=== PATIENT | female | born 1960 | race Caucasian/White ===

== ENCOUNTER → 2017-07-06 13:54 | Outpatient (CLI) | payer OTHER, SELFPAY ==
[2017-07-06 14:03] VITALS: BP 115/68; PULSE 69; RESP 16; TEMP 36.6; O2SAT 98; BMI 19.5
[2017-07-06] MEDS: Zoledronic Acid 5 MG 100 ML 300 MG IV (14:16)
== END ==
PROVIDERS: Family Provider Family Medicine; PCP Family Medicine; Visit Provider Family Medicine
DX: M81.0 Age-related osteoporosis without current pathological fracture (principal); Z78.0 Asymptomatic menopausal state
CPT/HCPCS: 96365; A4216; J3489

== ENCOUNTER → 2017-10-24 15:09 | Outpatient (CLI) | payer OTHER, SELFPAY ==
[2017-10-24 17:48] LABS: Absolute Lymphocyte Count 2.55 X10^3/ul (0.83-4.51); Basophil# 0.05 X10^3/uL; Basophil% 0.7 % (0-1); Eosinophil# 0.22 X10^3/uL; Hematocrit 40.2 % (37-47); Hemoglobin 12.6 g/dl (12.0-15.0); Lymphocyte # 2.55 X10^3/ul (4.0); Lymphocyte % 35.2 % (19-41); Mean Corp Hgb Conc 31.3 g/gl (32-36); Mean Corpuscular Hgb 28.3 pg (27.0-32.0); Mean Corpuscular Volume 90.1 fL (81-99); Mean Platelet Vol. 11.4 fl (6.2-12.0); Monocyte# 0.43 X10^3/uL; Monocyte% 5.9 % (0-10); Neutrophil # 3.99 X10^3/uL (2.7-7.7); Neutrophil % 55.1 % (47-70); Platelet Count 218 K/mm3 (150-450); RBC Distribution Width CV 13.7 % (11.6-14.6); RBC Distribution Width SD 45.6 fl (35.1-43.9); Red Blood Count 4.46 M/mm3 (4.2-5.4); White Blood Count 7.3 K/mm3 (4.4-11.0)
[2017-10-24 17:52] LABS: POSITIVE COUNT NO; POSITIVE DIFFERENTIAL NO; POSITIVE MORPHOLOGY NO
[2017-10-24 17:54] LABS: Anion Gap 9 (5-15); BUN 23 mg/dL (7-18); BUN/Creat Ratio 23.9 RATIO (10-20); Calcium,Total 8.5 mg/dL (8.5-10.1); Chloride 109 mmol/L (98-107); Cholesterol 163 mg/dL (200); Creatinine, Serum 0.96 mg/dL (0.55-1.02); EST Glomerular Filtration Rate 63 mL/min (>60); Est Glom Filt Rate - Afr Amer 76 mL/min (>60); Glucose 109 mg/dL (74-106); High Density Lipoprotein 68 mg/dL; Sodium Level 143 mmol/L (136-145); Thyroid Stim Hormone (TSH) 1.03 uIU/mL (0.358-3.74); Triglycerides 145 mg/dL; Very Low Density Lipoprotein 29 mg/dL (5-40)
== END ==
PROVIDERS: Family Provider Family Medicine; PCP Family Medicine; Visit Provider Family Medicine
DX: Z00.00 Encounter for general adult medical examination without abnormal findings (principal); J44.9 Chronic obstructive pulmonary disease, unspecified
CPT/HCPCS: 36415; 80048; 80061; 84443; 85025

== ENCOUNTER → 2017-12-03 12:39 | Outpatient (CLI) | payer OTHER, SELFPAY ==
--- NOTE | 2017-12-03 16:34 | PFTCOMP ---
COMPLETE PULMONARY FUNCTION TEST INTERPRETATION Brief HPI: Patient is a 56 year old female, currently under the care of Dr. Thomas, who presents to [facility] for complete pulmonary function tests secondary to diagnosis of COPD. Respiratory therapist reports good effort and reproducible results. Interpretation: Forced expiration spirometry shows a moderate large airways obstructive ventilatory defect with an FEV1 of 66% predicted. There is no significant bronchodilator response by ATS criteria. Spirograms are of good quality and plateau slowly, indicating slowly emptying areas of the lungs. The respiratory flow volume loop shows decreased expiratory flow rates at all lung volumes consistent with airway obstruction. Lung volumes by body plethysmography show an elevated total lung capacity at 5.54 L, 123% predicted. All other lung volumes are increased symmetrically. Diffusion capacity by carbon monoxide is at the lower limit of normal at 66% predicted. The airway resistance is elevated. Compared to previous pulmonary function tests from 11/26/2006, there has been a significant reduction in FEV1 and DLCO by 17% and 19% respectively. Impression: Irreversible moderate large airways obstructive ventilatory defect with a symmetric reduction diffusing capacity consistent with patient's diagnosis of COPD. There has been progression since 2006.
--- NOTE | 2017-12-03 16:38 | PFTCOMP_ITS ---
COMPLETE PULMONARY FUNCTION TEST INTERPRETATION Brief HPI: Patient is a 56 year old female, currently under the care of Dr. Thomas , who presents to [facility] for complete pulmonary function tests secondary to diagnosis of COPD. Respiratory therapist reports good effort and reproducible results. Interpretation: Forced expiration spirometry shows a moderate large airways obstructive ventilatory defect with an FEV1 of 66% predicted. There is no significant bronchodilator response by ATS criteria. Spirograms are of good quality and plateau slowly, indicating slowly emptying areas of the lungs. The respiratory flow volume loop shows decreased expiratory flow rates at all lung volumes consistent with airway obstruction. Lung volumes by body plethysmography show an elevated total lung capacity at 5.54 L, 123% predicted. All other lung volumes are increased symmetrically. Diffusion capacity by carbon monoxide is at the lower limit of normal at 66% predicted. The airway resistance is elevated. Compared to previous pulmonary function tests from 11/26/2006, there has been a significant reduction in FEV1 and DLCO by 17% and 19% respectively. Impression: Irreversible moderate large airways obstructive ventilatory defect with a symmetric reduction diffusing capacity consistent with patient's diagnosis of COPD. There has been progression since 2006.
== END ==
PROVIDERS: Family Provider Family Medicine; PCP Family Medicine; Visit Provider Family Medicine
DX: J44.9 Chronic obstructive pulmonary disease, unspecified (principal)
CPT/HCPCS: 94060; 94726; 94729

== ENCOUNTER → 2018-09-13 08:07 | Outpatient (CLI) | payer OTHER, SELFPAY ==
[2018-09-13] MEDS: Zoledronic Acid 5 MG 100 ML 300 MG IV (08:56)
[2018-09-13 08:59] VITALS: BP 117/65; PULSE 55; RESP 16; TEMP 36.4; O2SAT 96; BMI 20.1
== END ==
PROVIDERS: Family Provider Family Medicine; PCP Family Medicine; Referring Provider Family Medicine; Visit Provider Family Medicine
DX: M81.0 Age-related osteoporosis without current pathological fracture (principal)
CPT/HCPCS: 96365; J7050; A4216; J3489

== ENCOUNTER → 2018-11-04 | Outpatient (CLI) | payer OTHER, SELFPAY ==
[2018-09-13 08:59] VITALS: BMI 20.1
[2018-11-04 17:41] LABS: ALB/GLOB Ratio 1.1 RATIO (0.9-2.4); AST(SGOT) 17 U/L (15-37); Alanine Aminotransfer ALT/SGPT 21 U/L (13-56); Albumin, Serum 3.6 g/dL (3.2-5.0); Alkaline Phosphatase 54 U/L (45-117); Anion Gap 4 (5-15); BUN 22 mg/dL (7-18); BUN/Creat Ratio 23.8 RATIO (10-20); Calcium,Total 8.5 mg/dL (8.5-10.1); Chloride 110 mmol/L (98-107); Creatinine, Serum 0.92 mg/dL (0.55-1.02); EST Glomerular Filtration Rate 66 mL/min (>60); Est Glom Filt Rate - Afr Amer 80 mL/min (>60); Globulin 3.2 g/dL (2.2-4.2); Glucose 90 mg/dL (74-106); Potassium 4.2 mmol/L (3.5-5.1); Protein, Total 6.8 g/dL (6.4-8.2); Sodium Level 143 mmol/L (136-145)
[2018-11-04 18:27] LABS: Vitamin D,25 Hydroxy 25.2 ng/mL (29.95-100.01)
== END | disposition home or self-care (01) ==
LOC: MFPLAB 16:28
PROVIDERS: Family Provider Family Medicine; PCP Family Medicine; Visit Provider Nurse Practitioner Family
DX: E55.9 Vitamin D deficiency, unspecified (principal); B35.1 Tinea unguium
CPT/HCPCS: 36415; 80053; 82306

== ENCOUNTER → 2019-10-27 | Outpatient (CLI) | payer OTHER, SELFPAY ==
[2018-09-13 08:59] VITALS: BMI 20.1
[2019-10-27 08:49] VITALS: BP 130/60; PULSE 53; RESP 18; TEMP 35.8; O2SAT 100; BMI 20.1
[2019-10-27] MEDS: Zoledronic Acid 5 MG 100 ML 300 MG IV (09:07)
[2019-10-27 09:27] VITALS: BP 121/65; PULSE 55; RESP 16
== END | disposition home or self-care (01) ==
LOC: MEDOUTP 08:46
PROVIDERS: PCP Family Medicine; Referring Provider Family Medicine; Visit Provider Family Medicine
DX: M81.0 Age-related osteoporosis without current pathological fracture (principal)
CPT/HCPCS: 96365; A4216; J3489

== ENCOUNTER 2020-02-27 07:33 | Day surgery (SDC) | payer OTHER, SELFPAY ==
[2019-10-27 08:49] VITALS: BMI 20.1
--- NOTE | 2020-02-12 09:16 | EKG12_ITS ---
Test Reason : PRE OP Blood Pressure : / mmHG Vent. Rate : 049 BPM Atrial Rate : 049 BPM P-R Int : 110 ms QRS Dur : 064 ms QT Int : 430 ms P-R-T Axes : 078 052 074 degrees QTc Int : 388 ms Sinus bradycardia with short MO Otherwise normal ECG Confirmed by RISSA RAMESH, CHRIS ([id number]), newspaper photo editor MAY CAMPBELL ([id number]) on 02/13/2020 1:20:48 PM Referred By: Jonh Cramer Confirmed By:CHRIS KWOK MD
[2020-02-27] VITALS (7 sets, daily range): BP systolic 123–136; BP diastolic 60–73; PULSE 51–67; RESP 14–20; TEMP 35.7–36.4; O2SAT 95–100; BMI 20.7
[2020-02-27 08:13] LABS: Hemoglobin 13.6 g/dL (12.0-15.0); Mean Corp Hgb Conc 32.4 g/dL (32-36); Mean Corpuscular Hgb 29.2 pg (27.0-32.0); Mean Corpuscular Volume 90.3 fL (81-99); Platelet Count 232 K/mm3 (150-450); RBC Distribution Width SD 42.8 fl (35.1-43.9); Red Blood Count 4.65 M/mm3 (4.2-5.4); White Blood Count 6.9 K/mm3 (4.4-11.0)
[2020-02-27] MEDS: Lactated Ringers 1,000 ML 100 ML IV (08:19)
[2020-02-27] MEDS: Lidocaine 1%/Epi 1:200 (30ml) 30 ML AMPUL (09:37)
[2020-02-27] MEDS: Bacitracin 500 UNITS/GM PACKET (09:50)
[2020-02-27] MEDS: Lidocaine 2% /Epi 1:100 (50ml) 50 ML Vial (09:53)
--- NOTE | 2020-02-27 09:56 | OP.PCM_ITS ---
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 This is resulted in significant hypertrophy of the tragal cartilage and obstruction of the external auditory canal. The procedure was offered for alleviation of this excess tissue and hoahaoism of her external auditory canal patency and she was eager to proceed. The risks of coronavirus exposure in this time period was also discussed and she was agreeable to accept this risk in exchange for relief of her chronic condition. The risks, alternatives, potential complications, and benefits were discussed at length and any questions answered to the patient and/or caregiver's satisfaction. Witnessed informed consent was obtained in the office, and the patient and/or caregiver was agreeable to proceed. Procedure went as follows: The patient was identified in the preoperative holding and the left ear site marked in accordance with the patient's exam, office chart, and history. She was then brought to the operating room she was placed under general anesthesia and intubated. When appropriate anesthesia obtained, the left ear was prepped and draped in usual sterile fashion. The tragal incision site was then injected with 2% lidocaine with 1:100,000 epinephrine for a total of 1 cc. After allowing for vasoconstriction a 15 blade scalpel was then used to make a 1 cm incision along the tragal cartilage. Thick scarring of the underlying tissue was immediately encountered. The overlying skin was then undermined and a full-thickness graft fashion with the excess scar excised down to the tragal cartilage. The excess skin was then removed and an ellipse around the incision site which removed the redundant folding and fullness that had occluded the external auditory canal. This was then sutured with 5-0 Monocryl interrupted sutures for closure of the skin wound. The patient was then returned to anesthesia where she revived and extubated without complication having tolerated the procedure well. Type of Anesthesia:: General Anesthesiologist: Ruben Sharpe Special Medications: none Specimen's removed: none Drains: none Estimated Blood Loss (mL): 0 mL Fluids Replaced: 800 mL Grafts/Implants Used: none - Complications none - Admit VTE Documentation VTE Present on Admission: No VTE Mechan Device Prophylaxis: SCD's VTE Pharm Prophylaxis ordered?: No
--- NOTE | 2020-02-27 10:02 | PCM.DC ---
- Discharge Diagnoses Current Active Problems: Current Active and Chronic Problems Stenosis of left external auditory canal (Chronic) You will use the following diet at home:: No restrictions Discharge Activity: Return to Normal Activity Call your doctor if your incision/area has: Increased Pain/ Swelling, Foul Smelling Discharge Cleanse incision/area with: Do not get Incision Wet Allergies/Adverse Reactions: Allergies No Known Allergies Allergy (Verified 02/04/20 10:48) Medications to take at Discharge Albuterol IH (ProAir) [Proair Hfa (SP)Vent Pts] 1 puff INHALATION Q6H PRN PRN 06/30/16 Fluticasone/Salmeterol [Advair 100-50 Diskus] 1 puff INHALATION DAILY 06/30/16 Pantoprazole Sodium [Protonix] 40 mg PO DAILY 06/30/16 Ospemifene [Osphena] 60 mg PO DAILY 07/06/17 Umeclidinium [place] Inhaler [Incruse Ellipta Inhaler] 1 puff IH DAILY 10/27/19 Biotin 5,000 mcg PO DAILY 02/04/20 Calcium (Elemental) [Os-David 500] 1,000 mg PO BID 02/04/20 Cholecalciferol (Vitamin D3) [Vitamin D3] 25 mcg PO DAILY 02/04/20 Zoledronic Acid 5 MG [Reclast 5 MG/100 Ml Solution] 5 mg IV .YEARLY 02/04/20 Primary Care Physician: Jonh Thomas MD [Primary Care Provider] - Test Results: Test results from this visit will be discussed in further detail at your follow-up appointment, if applicable. Please Follow Up With: Jonh Cramer MD When: 2 weeks
== END 2020-02-27 11:30 | disposition home or self-care (01) ==
LOC: SDC 07:34 → AC 07:35
PROVIDERS: Anesthesiology; PCP Family Medicine; Referring Provider Otolaryngology; Visit Provider Otolaryngology
PROC: (CPT 69310; principal; 2020-02-27 08:55)
DX: H61.312 Acquired stenosis of left external ear canal secondary to trauma (principal); J44.9 Chronic obstructive pulmonary disease, unspecified; K21.9 Gastro-esophageal reflux disease without esophagitis; Z20.828 Contact with and (suspected) exposure to other viral communicable diseases; Z79.51 Long term (current) use of inhaled steroids; Z87.891 Personal history of nicotine dependence; Z79.899 Other long term (current) drug therapy
CPT/HCPCS: 00120; 69310; 36415; 85027; 87426; 93005; C9803; J7120; J2405

== ENCOUNTER → 2020-06-08 16:59 | Outpatient (CLI) | payer OTHER, SELFPAY ==
[2020-02-27 08:02] VITALS: BMI 20.7
[2020-06-08 17:33] LABS: Absolute Neutrophil Count 4.6 X10^3/uL (2.0-7.7); Basophil# 0.11 X10^3/uL; Basophil% 1.3 % (0-1); Eosinophil# 0.24 X10^3/uL; Eosinophils% 2.8 % (0-5); Hematocrit 42.2 % (37-47); Hemoglobin 13.3 g/dL (12.0-15.0); Lymphocyte % 33.8 % (19-41); Mean Corp Hgb Conc 31.5 g/dL (32-36); Mean Corpuscular Hgb 28.5 pg (27.0-32.0); Mean Corpuscular Volume 90.6 fL (81-99); Mean Platelet Vol. 10.8 fl (6.2-12.0); Monocyte# 0.64 X10^3/uL; Monocyte% 7.5 % (0-10); NRBC Flagged by Analyzer 0 % (0-5); Neutrophil # 4.64 X10^3/uL (2.7-7.7); Neutrophil % 54.1 % (47-70); Platelet Count 253 K/mm3 (150-450); RBC Distribution Width CV 13.4 % (11.6-14.6); RBC Distribution Width SD 44.9 fl (35.1-43.9); Red Blood Count 4.66 M/mm3 (4.2-5.4); White Blood Count 8.6 K/mm3 (4.4-11.0)
[2020-06-08 17:39] LABS: Prothrombin Time (Protime)PT. 12.4 SECONDS (11.7-14.9)
[2020-06-08 18:14] LABS: ALB/GLOB Ratio 1.1 RATIO (0.9-2.4); AST(SGOT) 17 U/L (15-37); Alanine Aminotransfer ALT/SGPT 18 U/L (13-56); Albumin, Serum 3.8 g/dL (3.2-5.0); Alkaline Phosphatase 62 U/L (45-117); Anion Gap 2 (5-15); BUN 25 mg/dL (7-18); BUN/Creat Ratio 25.4 RATIO (10-20); Calcium,Total 8.9 mg/dL (8.5-10.1); Chloride 108 mmol/L (98-107); Creatinine, Serum 0.98 mg/dL (0.55-1.02); EST Glomerular Filtration Rate 61 mL/min (>60); Est Glom Filt Rate - Afr Amer 74 mL/min (>60); Globulin 3.4 g/dL (2.2-4.2); Glucose 88 mg/dL (74-106); Potassium 3.9 mmol/L (3.5-5.1); Protein, Total 7.2 g/dL (6.4-8.2); Sodium Level 139 mmol/L (136-145)
== END ==
PROVIDERS: PCP Family Medicine; Referring Provider Family Medicine; Visit Provider Family Medicine
DX: S00.1 Contusion of eyelid and periocular area (principal); R51.9 Headache, unspecified
CPT/HCPCS: 36415; 80053; 85025; 85610; 85730

== ENCOUNTER → 2020-06-09 14:17 | Outpatient (CLI) | payer OTHER, SELFPAY ==
[2020-02-27 08:02] VITALS: BMI 20.7
--- NOTE | 2020-06-09 14:21 | CT_ITS ---
STUDY: CT BRAIN WITHOUT CONTRAST REASON FOR EXAM: Female, 59 years old. New onset headache with bilateral spontaneous orbital ecchymosis RADIATION DOSAGE (If Supplied By Facility): CTDIvol = ( 38.43 ) mGy, DLP = ( 640.64 ) mGycm TECHNIQUE: Transaxial CT imaging of the brain was performed without administration of intravenous contrast material. Individualized dose optimization techniques were used for this CT. COMPARISON: No relevant priors. FINDINGS: Normal soft tissue structures. Normal calvarium. Normal size ventricles and extra-axial spaces for the patient''s age. Normal white matter tracts of the cerebral hemispheres. Normal basal ganglia and thalami. Normal brainstem. Normal cerebellum. There is no intracranial hemorrhage. There are no findings of an acute ischemic infarction. Mucosal thickening of the maxillary sinuses bilaterally. Partial opacification of the ethmoid sinuses bilaterally. CT/Brain/Head without Contrast IMPRESSION: Sinusitis. Electronically Signed: Gray Allen MD at 15:05 EDT , Service support ,
== END ==
PROVIDERS: PCP Family Medicine; Referring Provider Family Medicine; Visit Provider Family Medicine
DX: R23.3 Spontaneous ecchymoses (principal); R51.9 Headache, unspecified
CPT/HCPCS: 70450

== ENCOUNTER 2020-07-08 11:11 | Inpatient (IN) | payer OTHER, SELFPAY ==
[2020-02-27 08:02] VITALS: BMI 20.7
[2020-07-08] VITALS (12 sets, daily range): BP systolic 111–157; BP diastolic 53–91; PULSE 51–69; RESP 15–20; TEMP 36.3–37.1; O2SAT 95–99; BMI 21.0; BMI 20.1
--- NOTE | 2020-07-08 11:21 | EKG12_ITS ---
Test Reason : DIZZINESS Blood Pressure : / mmHG Vent. Rate : 053 BPM Atrial Rate : 053 BPM P-R Int : 100 ms QRS Dur : 072 ms QT Int : 396 ms P-R-T Axes : 056 065 062 degrees QTc Int : 371 ms Sinus bradycardia with short MT Nonspecific T wave abnormality Abnormal ECG Confirmed by ESTHELA RAMESH, TERRI ([id number]), editor producer NELLY SHANNON ([id number]) on 07/12/2020 10:11:27 AM Referred By: JOSHUA Confirmed By:TERRI PROCTOR MD
[2020-07-08 11:29] LABS: Absolute Lymphocyte Count 2.13 X10^3/uL (0.83-4.51); Absolute Neutrophil Count 4.3 X10^3/uL (2.0-7.7); Basophil# 0.06 X10^3/uL; Basophil% 0.8 % (0-1); Eosinophil# 0.11 X10^3/uL; Eosinophils% 1.5 % (0-5); Hematocrit 42.6 % (37-47); Hemoglobin 13.6 g/dL (12.0-15.0); Lymphocyte # 2.13 X10^3/ul (0.83-4.51); Lymphocyte % 29.8 % (19-41); Mean Corp Hgb Conc 31.9 g/dL (32-36); Mean Corpuscular Hgb 28.4 pg (27.0-32.0); Mean Corpuscular Volume 88.9 fL (81-99); Mean Platelet Vol. 10.3 fl (6.2-12.0); Monocyte# 0.49 X10^3/uL; Monocyte% 6.9 % (0-10); NRBC Flagged by Analyzer 0 % (0-5); Neutrophil # 4.33 X10^3/uL (2.7-7.7); Neutrophil % 60.6 % (47-70); Platelet Count 246 K/mm3 (150-450); RBC Distribution Width CV 13.1 % (11.6-14.6); RBC Distribution Width SD 42.8 fl (35.1-43.9); Red Blood Count 4.79 M/mm3 (4.2-5.4); White Blood Count 7.2 K/mm3 (4.4-11.0)
[2020-07-08 11:43] LABS: Anion Gap 4 (5-15); BUN 31 mg/dL (7-18); Calcium,Total 9.4 mg/dL (8.5-10.1); Chloride 105 mmol/L (98-107); Creatinine, Serum 1.24 mg/dL (0.55-1.02); EST Glomerular Filtration Rate 47 mL/min (>60); Est Glom Filt Rate - Afr Amer 56 mL/min (>60); Estimated Creatinine Clearance 37.68 ml/min; Glucose 113 mg/dL (74-106); Potassium 3.6 mmol/L (3.5-5.1); Sodium Level 137 mmol/L (136-145)
--- NOTE | 2020-07-08 12:49 | EDS_ITS ---
HPI History of Present Illness Chief Complaint: General Illness Detail of Chief Complaint: Patient presents with near syncope, diaphoresis, and shortness of breath th Informant: patient Onset/Context/Timing Onset: Yesterday Narrative Narrative: Patient presents to the emergency department with complaint of a spell that has occurred twice now. Patient states she had a first episode at the end of May when she was doing some yard work and bent over and felt dizzy and presyncopal. Patient states that eventually her symptoms resolved and then yesterday while she was mowing the lawn she once again developed dizziness and a sensation of presyncope. Patient became very diaphoretic and that she vomited 4 times. Patient went inside and rested and symptoms past and currently has no co mplaints. Patient called her primary care physician who advised her to come to the ER to be evaluated. Prior similar symptoms: Yes PFSH PFSH Medical History (Updated 07/08/20 @ 14:[address] Rubén Cooley, DO) COPD (chronic obstructive pulmonary disease) Former smoker History of ganglion cyst Home Medications albuterol sulfate [ProAir HFA] 1 puff INHALATION Q6H PRN PRN 06/30/16 [History Last Taken 02/27/20 06:00 1 PUFF] fluticasone propion-salmeterol [Advair Diskus] 1 puff INHALATION DAILY 06/30/16 [History Last Taken 02/27/20 06:00 1 PUFF] pantoprazole 40 mg PO DAILY 06/30/16 [History Last Taken 02/27/20 06:00 40 MG] Osphena 60 mg PO DAILY 07/06/17 [History Last Taken Unknown] biotin 5,000 mcg PO DAILY 02/04/20 [History Last Taken Unknown] calcium carbonate 1,000 mg PO BID 02/04/20 [History Last Taken Unknown] cholecalciferol (vitamin D3) 25 mcg PO DAILY 02/04/20 [History Last Taken Unknown] zoledronic iyfb-cbvjsiqw-bzzgu 5 mg IV .YEARLY 02/04/20 [History Last Taken Unknown] umeclidinium [Incruse Ellipta] 1 inh INHALATION DAILY 07/08/20 [History Last Taken Unknown] Allergy/AdvReac Type Severity Reaction Status Date / Time No Known Allergies Allergy Verified 07/08/20 11:15 Surgical History (Updated 07/08/20 @ 12:46 by Patricia Brown) History of cholecystectomy History of tubal ligation Social History Smoking Status: Former smoker ROS ROS ED Constitutional Constitutional ED: Reports systems reviewed and no addt'l complaints, except as documented; Denies body ache(s), change in weight or chills Eyes Eyes: Denies acute decrease in peripheral vision, change in vision, double vision or loss of vision ENT ENT ED: Reports none; Denies ear pain, lip swelling, loss taste/smell, neck pain, otalgia or sore throat Cardiovascular Cardiovascular: Reports none and lightheadedness; Denies abdominal pain, chest pain with activity, leg edema, palpitations, rapid heart rate or syncope Respiratory/Chest Respiratory/Chest: Reports none, dyspnea and dyspnea on exertion; Denies change in mental status, dry cough, hemoptysis, shortness of breath at rest or shortness of breath with exertion Gastrointestinal Gastrointestinal: Reports none; Denies abdominal pain, change in stool character, diarrhea, hematemesis, hematochezia, melena, rectal bleeding or vomiting Genitourinary Genitourinary ED: Reports none; Denies abdominal discomfort, anuria, dysuria, genital pain or polyuria Musculoskeletal Musculoskeletal: Reports none; Denies arthralgias, back pain, difficulty walking, extremity pain, muscle weakness or myalgias Integumentary Reports none; Denies abscess or rash Neurologic Neurologic: Reports none; Denies abnormal gait, confusion, focal weakness, frequent falls, headache(s), loss of vision, numbness, paresthesias, radicular pain, vertigo or weakness Psychiatric Psychiatric: Reports systems reviewed and no addt'l complaints, except as documented and none; Denies behavioral changes, confusion, difficulty concentrating, hallucinations, suicidal ideation, tactile hallucinations or visual hallucinations Endocrine Endocrinology: Denies none, cold intolerance, excessive sweating, fatigue or heat intolerance Hematologic/Lymphatic Hematologic/Lymphatic: Reports none; Denies anemia, easy bleeding or easy bruising Allergic/Immunologic Allergic/Immunologic ED: Denies as per HPI, none, lip swelling, mouth swelling, throat swelling, tongue swelling or hives EXAM Physical Exam Const Vital Signs: 07/08/20 11:12 07/08/20 12:39 07/08/20 12:40 Temperature 98.0 F Temperature Source Temporal Pulse Rate 69 59 L Respiratory Rate 18 16 Respiratory Effort Normal Respiratory Pattern Normal Blood Pressure 132/76 H 150/79 H Blood Pressure Mean 94 102 Pulse Ox 97 99 Oxygen Delivery Method Room Air Room Air 07/08/20 13:23 07/08/20 14:11 Temperature Temperature Source Pulse Rate 62 54 L Respiratory Rate 15 20 H Respiratory Effort Respiratory Pattern Blood Pressure 137/78 H 145/78 H Blood Pressure Mean 97 100 Pulse Ox 99 96 Oxygen Delivery Method Room Air Positive well nourished and well developed General Appearance ED: well developed and NAD HEENT Reports TM's clear and moist mucous membranes normocephalic and atraumatic; Negative for trauma or tenderness Tympanic Membrane ED: Yes TM's clear Eyes PERRL and EOMs intact bilaterally General Eye ED: Negative for pale conjunctiva or scleral icterus Neck no lymphadenopathy, supple and no JVD General: Negative for tenderness Chest Wall inspection of chest normal and palpation of chest normal Chest: Negative for tenderness Resp normal respiratory effort and clear to auscultation bilaterally Effort and Inspection: Negative for respiratory distress or pain with movement Auscultation: Negative for rhonchi, wheezes or diminished lung sounds Cardio regular rate, regular rhythm, S1 normal heart sound, S2 normal heart sound and no murmurs Peripheral Pulses: pulses 2+ throughout GI normal to inspection, nondistended, normoactive bowel sounds, soft to palpation, non-tender, non-distended and no masses Back/Spine no CVA tenderness and no thoracic nor lumbar tenderness Extremity normal to inspection General Extremety ED: Negative for edema General Extremity: Negative for edema Neuro oriented x3, CN's II-XII intact bilaterally, no sensory deficits noted and gait normal Sensorium / Orientation: awake, alert, oriented to person, oriented to place and oriented to time Motor Exam: strength 5/5 throughout and strength abnormal Psych mental status grossly normal Skin no rashes or lesions noted and no wounds MDM MDM MDM Narrative Medical decision making narrative: Patient with slightly elevated troponin and concerning symptoms for acute coronary syndrome. Patient is currently asymptomatic but I believe she requires admission for further work-up and evaluation of elevated troponin. Lab Data Attestation: I reviewed the patient's lab results. Labs: Laboratory Results - last 24 hr 07/08/20 07/08/20 11:18 11:18 WBC 7.2 RBC 4.79 Hgb 13.6 Hct 42.6 MCV 88.9 MCH 28.4 MCHC 31.9 L RDW Std Deviation 42.8 RDW Coeff of Dahlia 13.1 Plt Count 246 MPV 10.3 Immature Gran % (Auto) 0.400 Neut % (Auto) 60.6 Lymph % (Auto) 29.8 Casey % (Auto) 6.9 Eos % (Auto) 1.5 Baso % (Auto) 0.8 Absolute Neuts (auto) 4.3 Absolute Lymphs (auto) 2.13 Nucleated RBC % 0 Sodium 137 Potassium 3.6 Chloride 105 Carbon Dioxide 28.0 Anion Gap 4 L BUN 31 H Creatinine 1.24 H Estim Creat Clear Calc 37.68 Est GFR (MDRD) Af Amer 56 L Est GFR (MDRD) Non-Af 47 L BUN/Creatinine Ratio 25.0 H Glucose 113 H Calcium 9.4 Troponin I 0.157 H Radiography Chest X-Ray - ED: 1 View, Read by ED Physician, Read by Radiologist and - (Patient with evidence of hyperinflation and chronic changes) Diagnostic Testing: Radiology Impression Chest X-Ray 07/08/20 12:56 IMPRESSION: Hyperinflation. The lungs are clear. Electronically Signed: Gray Allen MD at 13:25 EDT , Service support , EKG Initial EKG: Comments: EKG obtained showed sinus rhythm with a ventricular rate of [address] changes and a short CA. Prior EKG tracings: not available for review Treatment and Re-Evaluation Comments:: Patient remains pain-free in the emergency department and asymptomatic. Discharge Plan Triage Chief Complaint: General Illness ED Provider: Rubén Cooley Dx/Rx/DC Orders Clinical Impression: Acute coronary syndrome Prescriptions: No Action pantoprazole 20 MG tablet 40 mg PO DAILY RF: 0 fluticasone propion-salmeterol [Advair Diskus] 1 EACH blister with device 1 puff inhalation DAILY RF: 0 albuterol sulfate [ProAir HFA] 1 PUFF inhaler 1 puff inhalation Q6H PRN PRN (Reason: Sob &/Or Wheezing) RF: 0 Osphena 60 MG tablet 60 mg PO DAILY RF: 0 calcium carbonate 500 MG tablet 1,000 mg PO BID RF: 0 cholecalciferol (vitamin D3) 25 MCG tablet 25 mcg PO DAILY RF: 0 biotin 5,000 MCG tablet,disintegrating 5,000 mcg PO DAILY RF: 0 zoledronic jies-qbajkgnf-zvvsm 5 MG/100 ML piggyback 5 mg IV .YEARLY RF: 0 Incruse Ellipta 62.5 mcg/actuation Blister With Device 1 inh INHALATION DAILY RF: 0 Primary Care Provider: Jonh Thomas Referrals: Jonh Thomas MD [Primary Care Provider] - Disposition Disposition: Acute Care Hospital [facility]
--- NOTE | 2020-07-08 12:56 | RAD_ITS ---
STUDY: X-RAY CHEST REASON FOR EXAM: Female, 59 years old. History of one episode of nausea and vomiting and diaphoresis while mowing grass. TECHNIQUE: Single AP portable view of the chest. COMPARISON: Comparison is made with prior study dated 01/22/2017. FINDINGS: EKG atelectasis are seen. There is hyperinflation of the lungs consistent with chronic obstructive lung disease (COPD). There is no demonstrated pleural abnormality. Normal size heart. Normal mediastinum and juan. Normal visualized pulmonary arteries. There is atherosclerotic calcification of the aortic arch with tortuosity. Normal visualized thoracic spine. Normal visualized ribs, clavicles, and shoulders. There is no demonstrated abnormality of the visualized soft tissue structures of the upper abdomen. RAD/Chest 1 View (Portable) IMPRESSION: Hyperinflation. The lungs are clear. Electronically Signed: Gray Allen MD at 13:25 EDT , Service support ,
[2020-07-08] MEDS: Aspirin 81 MG TAB.CHEW 325 MG PO (13:17)
--- NOTE | 2020-07-08 15:07 | PCM.HP.STD ---
HPI - General General Chief Complaint: Referred to ED by PCP for dizziness, presyncope. HPI Narrative JULI LIU, is a 59 F who presents with past medical history as mentioned above was referred to the ED by her PCP for symptoms of dizziness, near syncope and sweating. Patient stated that today, she was mowing and all of a sudden, she felt dizzy, lightheaded, was severely diaphoretic, associated with nausea and vomiting and without aggravating or relieving factors. She states that she was about to pass out but she did not. She did not lose his consciousness. She went back home rested and her symptoms improved. She mentioned that she had a similar episode last month when she was working, felt dizzy, very diaphoretic and she was about to pass out. She denied associated chest pain or shortness of breath. Her heart rate was 59, other vital signs are stable. Routine blood work was remarkable for BUN of 31 and creatinine of 1.24. EKG revealed sinus bradycardia, low voltage QRS, flat T waves in leads V2, V3 and V4, no acute ST elevation. Her troponin was 0.157. Chest x-ray showed no acute findings. She is being admitted for presyncope and abnormal cardiac enzymes for evaluation. [facility] Medical History (Updated 07/08/20 @ 15:[address] Alden Whiteside MD) COPD (chronic obstructive pulmonary disease) Former smoker GERD (gastroesophageal reflux disease) History of ganglion cyst Home Medications albuterol sulfate [ProAir HFA] 1 puff INHALATION Q6H PRN PRN 06/30/16 [History Last Taken 02/27/20 06:00 1 PUFF] fluticasone propion-salmeterol [Advair Diskus] 1 puff INHALATION DAILY 06/30/16 [History Last Taken 02/27/20 06:00 1 PUFF] pantoprazole 40 mg PO DAILY 06/30/16 [History Last Taken 02/27/20 06:00 40 MG] Osphena 60 mg PO DAILY 07/06/17 [History Last Taken Unknown] biotin 5,000 mcg PO DAILY 02/04/20 [History Last Taken Unknown] calcium carbonate 1,000 mg PO BID 02/04/20 [History Last Taken Unknown] cholecalciferol (vitamin D3) 25 mcg PO DAILY 02/04/20 [History Last Taken Unknown] zoledronic kols-[id number]-[id number] 5 mg IV .YEARLY 02/04/20 [History Last Taken Unknown] umeclidinium [Incruse Ellipta] 1 inh INHALATION DAILY 07/08/20 [History Last Taken Unknown] Allergy/AdvReac Type Severity Reaction Status Date / Time No Known Allergies Allergy Verified 07/08/20 11:15 Family History (Updated 07/08/20 @ 14:45 by Stephanie Rai) Father Lung cancer Surgical History (Updated 07/08/20 @ 12:46 by Patricia Brown) History of cholecystectomy History of tubal ligation Social History Smoking Status: Former smoker ROS Constitutional Constitutional: Denies anorexia, chills, fatigue, fever(s) or malaise Eyes Eyes: Denies blurry vision, change in eye color, change in vision, double vision or eye pain ENT HEENT: Denies ear pain, epistaxis, headache(s), nasal congestion, post nasal drip or sore throat Cardiovascular Cardiovascular: Reports lightheadedness and other Details: Near syncope. ; Denies chest pain, dyspnea on exertion, edema, orthopnea, palpitations, paroxysmal nocturnal dyspnea or syncope Respiratory/Chest Respiratory/Chest: Denies cough, dyspnea, hemoptysis, productive cough, shortness of breath at rest, shortness of breath with exertion or wheezing Gastrointestinal Gastrointestinal: Reports nausea and vomiting; Denies abdominal pain, constipation, diarrhea, hematemesis, hematochezia or melena Genitourinary Genitourinary: Denies burning urination, dysuria, hematuria, urinary hesitancy or urinary urgency Musculoskeletal Musculoskeletal: Denies arthralgias, back pain, joint pain, joint swelling, myalgias or neck pain Neurologic Neurologic: Denies confusion, dizziness, focal weakness, headache(s), numbness, paresthesias, seizures, tingling or tremor(s) Psychiatric Psychiatric: Denies anxiety, depression, homicidal ideation or suicidal ideation Endocrine Endocrinology: Denies change in body appearance, cold intolerance, heat intolerance, polydipsia or polyuria Hematologic/Lymphatic Hematologic/Lymphatic: Reports other; Denies easy bleeding, easy bruising or lymphadenopathy Allergic/Immunologic Allergic/Immunologic: Denies itchy eyes, rhinitis, throat swelling, tongue swelling, hives, urticaria or wheezing Vital Signs Vital Signs Vital Signs: 07/08/20 11:12 07/08/20 12:39 07/08/20 12:40 Temperature 98.0 F Temperature Source Temporal Pulse Rate 69 59 L Respiratory Rate 18 16 Respiratory Effort Normal Respiratory Pattern Normal Blood Pressure 132/76 H 150/79 H Blood Pressure Mean 94 102 Pulse Ox 97 99 Oxygen Delivery Method Room Air Room Air 07/08/20 13:23 07/08/20 14:11 07/08/20 15:03 Temperature Temperature Source Pulse Rate 62 54 L 59 L Respiratory Rate 15 20 H 17 Respiratory Effort Respiratory Pattern Blood Pressure 137/78 H 145/78 H 157/78 H Blood Pressure Mean 97 100 104 Pulse Ox 99 96 97 Oxygen Delivery Method Room Air Room Air Physical Exam Const alert, oriented x3 and no apparent distress General Appearance: cooperative HEENT normocephalic, head/scalp atraumatic and moist oral mucous membranes Mouth: moist mucous membranes abnormal Eyes PERRL, EOMs intact bilaterally and conjunctivae normal Neck no lymphadenopathy, supple, no JVD and no carotid bruits Resp normal respiratory effort and clear to auscultation bilaterally Resp Narrative: Diminished breath sounds bilateral, otherwise clear. Auscultation: Negative for crackles, rales, rhonchi or wheezes Cardio regular rate, regular rhythm, S1 normal heart sound, S2 normal heart sound, no murmurs and no JVD Peripheral Pulses: pulses 2+ throughout GI normal to inspection, nondistended, normoactive bowel sounds, soft to palpation, non-tender and non-distended; Negative for hepatosplenomegaly Extremity normal to inspection, full ROM and no clubbing, cyanosis or edema Peripheral Pulses: Yes pulses 2+ throughout Skin no rashes or lesions noted, no wounds and no petechiae Neuro oriented x3 and CN's II-XII intact bilaterally Sensorium / Orientation: alert Speech: speech normal Motor Exam: strength 5/5 throughout Psych mental status grossly normal and affect normal Lab / Micro Data Result Diagrams: 07/08/20 11:18 07/08/20 11:18 Labs: Laboratory Results - last 24 hr 07/08/20 07/08/20 11:18 11:18 WBC 7.2 RBC 4.79 Hgb 13.6 Hct 42.6 MCV 88.9 MCH 28.4 MCHC 31.9 L RDW Std Deviation 42.8 RDW Coeff of Dahlia 13.1 Plt Count 246 MPV 10.3 Immature Gran % (Auto) 0.400 Neut % (Auto) 60.6 Lymph % (Auto) 29.8 Howard % (Auto) 6.9 Eos % (Auto) 1.5 Baso % (Auto) 0.8 Absolute Neuts (auto) 4.3 Absolute Lymphs (auto) 2.13 Nucleated RBC % 0 Sodium 137 Potassium 3.6 Chloride 105 Carbon Dioxide 28.0 Anion Gap 4 L BUN 31 H Creatinine 1.24 H Estim Creat Clear Calc 37.68 Est GFR (MDRD) Af Amer 56 L Est GFR (MDRD) Non-Af 47 L BUN/Creatinine Ratio 25.0 H Glucose 113 H Calcium 9.4 Troponin I 0.157 H Radiology Impression Chest X-Ray 07/08/20 12:56 IMPRESSION: Hyperinflation. The lungs are clear. Electronically Signed: Gray Allen MD at 13:25 EDT , Service support , Assessment & Plan Assessment/Plan (1) Abnormal cardiac enzyme level: Status: Acute Code(s): R74.8 - Abnormal levels of other serum enzymes (2) Pre-syncope: Status: Acute Code(s): R55 - Syncope and collapse (3) GERD (gastroesophageal reflux disease): Status: Acute Code(s): K21.9 - Gastro-esophageal reflux disease without esophagitis (4) Chronic Obstructive lung disease: Status: Chronic Plan: This is a 59 years old female patient presented to the emergency room because of dizziness, presyncope, diaphoresis and vomiting, found to have EKG changes and abnormal cardiac enzymes and she is being admitted for evaluation. #1 presyncope/EKG changes/abnormal cardiac enzymes: Patient denied any chest pain. Troponin is borderline elevated. EKG revealed flat T waves in V2, V3 and V4, sinus bradycardia, no acute ST elevation. Chest x-ray without acute findings. Plan: Admit to PCU, cardiac monitoring, serial cardiac enzymes, 2D echocardiogram, lipid profile, start aspirin, cardiology consult, IV fluids, Tylenol as needed, Zofran as needed, repeat CBC and BMP tomorrow morning. #2 Dehydration: As indicated\elevated BUN and creatinine. Plan: IV fluids, input output chart, repeat BMP tomorrow morning. #3 COPD: Stable, on room air. Plan for DuoNeb every 6 hours, albuterol as needed. #4 GERD: Continue PPI. #5 DVT prophylaxis: Subcu Lovenox. This note was generated with [employer] dictation software. It may contain incorrect words, spelling, and punctuation that were not noted in checking the note before signing. Inpatient E&M: 58152 Init Hosp L3
--- NOTE | 2020-07-08 17:13 | ECHOD_ITS ---
Reason For Study: SYNCOPE/NEAR SYNCOPE Procedure This was a 2D Doppler, Color Flow transthoracic echocardiogram. Exam performed portable in patient room. Left Ventricle Normal left ventricle. The estimated ejection fraction is EF 60-65% %. Right Ventricle Normal right ventricle. Normal systolic function. Atria Normal left atrium. Normal right atrium. Mitral Valve The mitral valve is structurally normal. No prolapse or stenosis seen. No mitral valve insufficiency. Tricuspid Valve Normal tricuspid valve. Unable to estimate RV systolic pressure due to insufficient tricuspid regurgitant envelope. Aortic Valve Normal aortic valve. No aortic valve insufficiency. Pulmonic Valve The pulmonic valve is not well visualized. Great Vessels Normal aortic root. Pericardium/Pleural No pericardial effusion. MMode/2D Measurements & Calculations LVIDd: 4.5 cm IVSd: 0.81 cm LA dimension: 3.0 cm LVIDs: 2.7 cm LVPWd: 0.91 cm RVDd: 2.7 cm FS: 40.7 % LAV(MOD-bp): 37.6 ml LA A4 area: 13.7 cm2 LA dimension(2D): 3.1 cm LAV(MOD-bp) Indexed: 25.4 ml/m2 LAV(MOD-sp2): 39.5 ml LAV(MOD-sp4): 33.1 ml RA A4 area: 10.0 cm2 Time Measurements MV dec time: 0.15 sec Doppler Measurements & Calculations MV E max imer: 94.8 cm/sec Lat Peak E' Imer: 9.5 cm/sec Med Peak E' Imer: 7.6 cm/sec MV A max imer: 77.4 cm/sec E/E' lat: 10.0 E/E' med: 12.5 MV E/A: 1.2 Ao V2 max: 126.1 cm/sec LV V1 max: 120.1 cm/sec PA V2 max: 82.3 cm/sec Ao max P.4 mmHg LV V1 max P.8 mmHg TR max imer: 289.8 cm/sec TR max P.6 mmHg ECHO/Echo Complete Interpretation Summary The estimated ejection fraction is EF 60-65% %. Normal LV systolic function No significant valvular abnormalities Ordering Physician: Alden Whiteside Referring Physician: Jonh Thomas Performed By: Taina Sanders, BRITTANY, RVT
[2020-07-08 17:56] LABS: Cholesterol 175 mg/dL (200); High Density Lipoprotein 90 mg/dL; Thyroid Stim Hormone (TSH) 1.03 uIU/mL (0.358-3.74); Triglycerides 55 mg/dL; Very Low Density Lipoprotein 11 mg/dL (5-40)
--- NOTE | 2020-07-08 17:59 | PCM.CONS.C ---
Assessment & Plan Assessment/Plan (1) Abnormal cardiac enzyme level: Status: Acute Code(s): R74.8 - Abnormal levels of other serum enzymes (2) Pre-syncope: Status: Acute Code(s): R55 - Syncope and collapse (3) GERD (gastroesophageal reflux disease): Status: Acute Code(s): K21.9 - Gastro-esophageal reflux disease without esophagitis Qualifiers: Esophagitis presence: without esophagitis Qualified Code(s): K21.9 - Gastro-esophageal reflux disease without esophagitis (4) Chronic Obstructive lung disease: Status: Inactive Plan: 59-year-old patient seen and evaluated at bedside along with the nursing staff Cardiac consult patient requested for evaluation of symptoms of dizziness, near syncope and she had sweating. Evidently she had 2 episodes of presyncope this happened while she was working on the hot yard mowing the lawn She denies any symptoms of chest pain she does not have any prior cardiac history Patient known to have history of COPD, she is a former smoker, GERD. Plan; 1. We will continue to monitor on telemetry 2. We will give series of high sensitive troponin 3. Echocardiogram in a.m. 4. She will need further assessment with monitor if cardiac biomarkers are negative to evaluate further with nuclear stress test. 5. I review her current medication patient currently on albuterol, pantoprazole she is not on any beta-sharad. HPI Consult Data Date of Consult: 07/08/20 HPI Narrative HPI Narrative: JULI LIU, is a 59 F who presents [facility] Medical History (Updated 07/08/20 @ 18:[address] Dasia Robles MD) Chronic Obstructive lung disease COPD (chronic obstructive pulmonary disease) Former smoker GERD (gastroesophageal reflux disease) History of ganglion cyst Home Medications albuterol sulfate [ProAir HFA] 1 puff INHALATION Q6H PRN PRN 06/30/16 [History Last Taken 3 Days Ago ~07/05/20] fluticasone propion-salmeterol [Advair Diskus] 1 puff INHALATION DAILY 06/30/16 [History Last Taken 07/08/20] Osphena 60 mg PO DAILY 07/06/17 [History Last Taken 07/08/20] biotin 5,000 mcg PO DAILY 02/04/20 [History Last Taken 07/08/20] calcium carbonate 1,000 mg PO BID 02/04/20 [History Last Taken 07/08/20] cholecalciferol (vitamin D3) 25 mcg PO DAILY 02/04/20 [History Last Taken 07/08/20] zoledronic yhzp-jamlqgek-irjxx 5 mg IV .YEARLY 02/04/20 [History Last Taken 8 Months Ago ~11/08/19] pantoprazole 40 mg PO DAILY 07/08/20 [History Last Taken 07/08/20] umeclidinium [Incruse Ellipta] 1 inh INHALATION DAILY 07/08/20 [History Last Taken 07/08/20] Allergy/AdvReac Type Severity Reaction Status Date / Time No Known Allergies Allergy Verified 07/08/20 11:15 Family History (Updated 07/08/20 @ 14:45 by Stephanie Rai) Father Lung cancer Surgical History (Updated 07/08/20 @ 12:46 by Patricia Brown) History of cholecystectomy History of tubal ligation Social History Smoking Status: Former smoker ROS Constitutional Constitutional: Reports systems reviewed and no addt'l complaints, except as documented; Denies anorexia, body ache(s), change in weight, chills, fatigue, fever(s) or malaise Eyes Eyes: Denies acute decrease in peripheral vision, blurry vision, change in eye color, change in vision, double vision, eye pain or loss of vision ENT HEENT: Reports none; Denies ear pain, epistaxis, headache(s), lip swelling, loss taste/smell, nasal congestion, neck pain, otalgia, post nasal drip or sore throat Cardiovascular Cardiovascular: Reports none, lightheadedness and other Details: Near syncope. ; Denies abdominal pain, chest pain, chest pain with activity, dyspnea on exertion, edema, leg edema, orthopnea, palpitations, paroxysmal nocturnal dyspnea, rapid heart rate or syncope Respiratory/Chest Respiratory/Chest: Reports none and dyspnea on exertion; Denies change in mental status, cough, dry cough, dyspnea, hemoptysis, productive cough, shortness of breath at rest, shortness of breath with exertion or wheezing Gastrointestinal Gastrointestinal: Reports none, nausea and vomiting; Denies abdominal pain, change in stool character, constipation, diarrhea, hematemesis, hematochezia, melena or rectal bleeding Genitourinary Genitourinary: Reports none; Denies abdominal discomfort, anuria, burning urination, dysuria, genital pain, hematuria, polyuria, urinary hesitancy or urinary urgency Musculoskeletal Musculoskeletal: Reports none; Denies arthralgias, back pain, difficulty walking, extremity pain, joint pain, joint swelling, muscle weakness, myalgias or neck pain Integumentary Integumentary: Reports none; Denies rash Neurologic Neurologic: Reports none; Denies abnormal gait, confusion, dizziness, focal weakness, frequent falls, headache(s), loss of vision, numbness, paresthesias, radicular pain, seizures, tingling, tremor(s), vertigo or weakness Endocrine Endocrinology: Denies none, change in body appearance, cold intolerance, excessive sweating, fatigue, heat intolerance, polydipsia or polyuria Hematologic/Lymphatic Hematologic/Lymphatic: Reports none and other; Denies anemia, easy bleeding, easy bruising or lymphadenopathy Allergic/Immunologic Allergic/Immunologic: Denies as per HPI, none, itchy eyes, lip swelling, rhinitis, throat swelling, tongue swelling, hives, urticaria or wheezing Physical Exam Const alert, oriented x3 and healthy appearing Orientation / Consciousness: awake HEENT normocephalic Eyes PERRL Neck supple Chest inspection of chest normal and palpation of chest normal Resp clear to auscultation bilaterally Cardio regular rate, regular rhythm, S1 normal heart sound, S2 normal heart sound, no murmurs and no rub Lab / Micro Data Result Diagrams: 07/08/20 11:18 07/08/20 11:18 Labs: Laboratory Results - last 24 hr 07/08/20 07/08/20 07/08/20 11:18 11:18 15:03 WBC 7.2 RBC 4.79 Hgb 13.6 Hct 42.6 MCV 88.9 MCH 28.4 MCHC 31.9 L RDW Std Deviation 42.8 RDW Coeff of Dahlia 13.1 Plt Count 246 MPV 10.3 Immature Gran % (Auto) 0.400 Neut % (Auto) 60.6 Lymph % (Auto) 29.8 Cavalier % (Auto) 6.9 Eos % (Auto) 1.5 Baso % (Auto) 0.8 Absolute Neuts (auto) 4.3 Absolute Lymphs (auto) 2.13 Nucleated RBC % 0 Sodium 137 Potassium 3.6 Chloride 105 Carbon Dioxide 28.0 Anion Gap 4 L BUN 31 H Creatinine 1.24 H Estim Creat Clear Calc 37.68 Est GFR (MDRD) Af Amer 56 L Est GFR (MDRD) Non-Af 47 L BUN/Creatinine Ratio 25.0 H Glucose 113 H Calcium 9.4 Troponin I 0.157 H 0.123 H Triglycerides Cholesterol LDL Cholesterol VLDL Cholesterol HDL Cholesterol TSH 07/08/20 15:03 WBC RBC Hgb Hct MCV MCH MCHC RDW Std Deviation RDW Coeff of Dahlia Plt Count MPV Immature Gran % (Auto) Neut % (Auto) Lymph % (Auto) Cavalier % (Auto) Eos % (Auto) Baso % (Auto) Absolute Neuts (auto) Absolute Lymphs (auto) Nucleated RBC % Sodium Potassium Chloride Carbon Dioxide Anion Gap BUN Creatinine Estim Creat Clear Calc Est GFR (MDRD) Af Amer Est GFR (MDRD) Non-Af BUN/Creatinine Ratio Glucose Calcium Troponin I Triglycerides 55 Cholesterol 175 LDL Cholesterol 74 VLDL Cholesterol 11 HDL Cholesterol 90 TSH 1.03 EKG Initial EKG: Attestation: I personally reviewed and interpreted this EKG as follows: EKG Rhythm Intrepretation: Sinus Rhythm and Sinus Bradycardia Interpretation: EKG revealed normal sinus with sinus bradycardia and nonspecific T wave inversion noted in the anterior lead. Radiology Impression Chest X-Ray 07/08/20 12:56 IMPRESSION: Hyperinflation. The lungs are clear. Electronically Signed: Gray Allen MD at 13:25 EDT , Service support ,
[2020-07-08] MEDS: 0.9% Normal Saline 1,000 ML 100 ML IV (18:19)
[2020-07-08] MEDS: Ipratropium/Albuterol Sulfate 3 ML AMPUL.NEB INHALATION (19:54)
[2020-07-08] MEDS: Enoxaparin 60 MG/0.6 ML Syringe 50 MG SC (21:03)
[2020-07-09] VITALS (9 sets, daily range): BP systolic 123–165; BP diastolic 59–69; PULSE 50–70; RESP 16–18; TEMP 36.5–36.6; O2SAT 96–98
[2020-07-09] MEDS: 0.9% Normal Saline 1,000 ML 100 ML IV (04:33)
[2020-07-09 06:14] LABS: Absolute Lymphocyte Count 1.84 X10^3/uL (0.83-4.51); Absolute Neutrophil Count 2.1 X10^3/uL (2.0-7.7); Basophil# 0.05 X10^3/uL; Basophil% 1.1 % (0-1); Eosinophil# 0.19 X10^3/uL; Eosinophils% 4.1 % (0-5); Hematocrit 39.5 % (37-47); Hemoglobin 12.4 g/dL (12.0-15.0); Lymphocyte # 1.84 X10^3/ul (0.83-4.51); Lymphocyte % 39.4 % (19-41); Mean Corp Hgb Conc 31.4 g/dL (32-36); Mean Corpuscular Hgb 28.5 pg (27.0-32.0); Mean Corpuscular Volume 90.8 fL (81-99); Mean Platelet Vol. 10.6 fl (6.2-12.0); Monocyte# 0.49 X10^3/uL; Monocyte% 10.5 % (0-10); NRBC Flagged by Analyzer 0 % (0-5); Neutrophil # 2.08 X10^3/uL (2.7-7.7); Neutrophil % 44.5 % (47-70); Platelet Count 201 K/mm3 (150-450); RBC Distribution Width CV 13.2 % (11.6-14.6); RBC Distribution Width SD 44.3 fl (35.1-43.9); Red Blood Count 4.35 M/mm3 (4.2-5.4); White Blood Count 4.7 K/mm3 (4.4-11.0)
[2020-07-09 06:38] LABS: Anion Gap 6 (5-15); BUN 21 mg/dL (7-18); BUN/Creat Ratio 23.5 RATIO (10-20); Calcium,Total 8.2 mg/dL (8.5-10.1); Chloride 111 mmol/L (98-107); Creatinine, Serum 0.89 mg/dL (0.55-1.02); EST Glomerular Filtration Rate 68 mL/min (>60); Est Glom Filt Rate - Afr Amer 83 mL/min (>60); Estimated Creatinine Clearance 52.38 ml/min; Glucose 79 mg/dL (74-106); Potassium 3.8 mmol/L (3.5-5.1); Sodium Level 142 mmol/L (136-145)
[2020-07-09] MEDS: Ipratropium/Albuterol Sulfate 3 ML AMPUL.NEB INHALATION ×2 (07:21→13:13)
[2020-07-09] MEDS: Aspirin 81 MG TAB.CHEW PO (12:03)
[2020-07-09] MEDS: Pantoprazole Sodium 40 MG Tablet PO (12:04)
--- NOTE | 2020-07-09 13:48 | CASEMGMT ---
CHERELLE VAZQUEZ Assessment: Face to Face with pt for initial transition planning/care coordination assessment. RN TAYLOR introduced self and role at [facility], pt voices understanding and consents to assessment. Pt is A/O x4 and answers all questions appropriately at this time. Pt sitting up in bed in no distress. Care providers, pharmacy, and demographics verified/updated. Admitting Dx: presyncope, abn cardiac enzymes, dehydration PCP: William Specialists: Denies Preferred Pharmacy: [facility] Insurance: [employer] Prescription Benefit: yes LW/HPOA: Pt states she has a LW/DPOA. Her DPOA is her Jeromy Castillo. LNOK: Jeromy Castillo Living Arrangements: Pt lives with in a two story house with one step to enter. Pt is I in ADL's and denies concerns at home. Transportation: Pt drives self. Denies concerns with transportation. DME/HHC/SNF: Pt denies having any DME, previous HHC or SNF stays. Pt states no concerns with going home at time of dc. Pt states no further concerns/needs. CM to follow. Advised pt to ask CM if any further question/concerns/needs arise, voices understanding. Pt Goal: Home Plan: Home with family support
--- NOTE | 2020-07-09 13:53 | PN.CARD_ITS ---
Subjective Subjective: Patient seen and evaluated today at bedside she repeatedly denied any symptoms of chest pain. Objective Data Vital Signs: Vital Signs Temp Pulse Resp BP Pulse Ox 97.7 F L 63 18 165/69 H 98 07/09/20 10:35 07/09/20 11:00 07/09/20 10:35 07/09/20 10:35 07/09/20 10:35 Oxygen Delivery Method Room Air Weight: 110 lb 3.2 oz Body Mass Index (BMI) 20.1 Intake & Output: Intake and Output for Last 24 Hours 07/07/20 07/08/20 07/09/20 23:59 23:59 23:59 Intake Total 75 / 75 1120 / 1120 Balance 75 / 75 1120 / 1120 Lab / Micro Data Result Diagrams: 07/09/20 05:20 07/09/20 05:20 Labs: Laboratory Results - last 24 hr 07/08/20 07/08/20 07/08/20 15:03 15:03 17:41 WBC RBC Hgb Hct MCV MCH MCHC RDW Std Deviation RDW Coeff of Dahlia Plt Count MPV Immature Gran % (Auto) Neut % (Auto) Lymph % (Auto) [place] % (Auto) Eos % (Auto) Baso % (Auto) Absolute Neuts (auto) Absolute Lymphs (auto) Nucleated RBC % Sodium Potassium Chloride Carbon Dioxide Anion Gap BUN Creatinine Estim Creat Clear Calc Est GFR (MDRD) Af Amer Est GFR (MDRD) Non-Af BUN/Creatinine Ratio Glucose Calcium Troponin I 0.123 H 0.117 H Triglycerides 55 Cholesterol 175 LDL Cholesterol 74 VLDL Cholesterol 11 HDL Cholesterol 90 TSH 1.03 07/08/20 07/09/20 07/09/20 20:46 05:20 05:20 WBC 4.7 RBC 4.35 Hgb 12.4 Hct 39.5 MCV 90.8 MCH 28.5 MCHC 31.4 L RDW Std Deviation 44.3 H RDW Coeff of Dahlia 13.2 Plt Count 201 MPV 10.6 Immature Gran % (Auto) 0.400 Neut % (Auto) 44.5 L Lymph % (Auto) 39.4 [place] % (Auto) 10.5 H Eos % (Auto) 4.1 Baso % (Auto) 1.1 H Absolute Neuts (auto) 2.1 Absolute Lymphs (auto) 1.84 Nucleated RBC % 0 Sodium 142 Potassium 3.8 Chloride 111 H Carbon Dioxide 25.0 Anion Gap 6 BUN 21 H Creatinine 0.89 Estim Creat Clear Calc 52.38 Est GFR (MDRD) Af Amer 83 Est GFR (MDRD) Non-Af 68 BUN/Creatinine Ratio 23.5 H Glucose 79 Calcium 8.2 L Troponin I 0.088 H Triglycerides Cholesterol LDL Cholesterol VLDL Cholesterol HDL Cholesterol TSH Cardiology Labs/Tests 07/08/20 15:03: Troponin I 0.123 H 07/08/20 15:03: Triglycerides 55, Cholesterol 175, LDL Cholesterol 74, VLDL Cholesterol 11, HDL Cholesterol 90 07/08/20 17:41: Troponin I 0.117 H 07/08/20 20:46: Troponin I 0.088 H 07/09/20 05:20: WBC 4.7, RBC 4.35, Hgb 12.4, Hct 39.5, MCV 90.8, MCH 28.5, MCHC 31.4 L, Plt Count 201, MPV 10.6, Immature Gran % (Auto) 0.400, Neut % (Auto) 44.5 L, Lymph % (Auto) 39.4, [place] % (Auto) 10.5 H, Eos % (Auto) 4.1, Baso % (Auto) 1.1 H, Absolute Neuts (auto) 2.1, Nucleated RBC % 0 07/09/20 05:20: Sodium 142, Potassium 3.8, Chloride 111 H, Carbon Dioxide 25.0, Anion Gap 6, BUN 21 H, Creatinine 0.89, Est GFR (MDRD) Af Amer 83, Est GFR (MDRD) Non-Af 68, BUN/Creatinine Ratio 23.5 H, Glucose 79, Calcium 8.2 L Rhythm: Sinus rhythm EKG: Initial EKG showed sinus bradycardia with nonspecific T wave change in the anterior lead ECHO: LV function preserved with no significant valve abnormality No pericardial effusion noted. Radiography Diagnostic Testing: Radiology Impression Echocardiogram 07/08/20 17:13 Interpretation Summary The estimated ejection fraction is EF 60-65% %. Normal LV systolic function No significant valvular abnormalities Ordering Physician: Alden Whiteside Referring Physician: Jonh Thomas Performed By: Taina Sanders RDCS, RVT Physical Exam Const alert, oriented x3 and healthy appearing Orientation / Consciousness: awake HEENT normocephalic Eyes PERRL Neck supple Chest inspection of chest normal and palpation of chest normal Resp clear to auscultation bilaterally Cardio regular rate, regular rhythm, S1 normal heart sound, S2 normal heart sound, no murmurs and no rub Assessment & Plan Assessment/Plan (1) Abnormal cardiac enzyme level: Status: Acute Code(s): R74.8 - Abnormal levels of other serum enzymes (2) Pre-syncope: Status: Acute Code(s): R55 - Syncope and collapse (3) GERD (gastroesophageal reflux disease): Status: Acute Code(s): K21.9 - Gastro-esophageal reflux disease without esophagitis Qualifiers: Esophagitis presence: without esophagitis Qualified Code(s): K21.9 - Gastro-esophageal reflux disease without esophagitis (4) Chronic Obstructive lung disease: Status: Inactive Plan: 59-year-old patient seen and evaluated at bedside along with the nursing staff, today patient repeatedly denied any symptoms of chest pain. Cardiac consult patient requested for evaluation of symptoms of dizziness, near syncope and she had sweating. Evidently she had 2 episodes of presyncope this happened while she was working on the hot yard mowing the [employer] She denies any symptoms of chest pain she does not have any prior cardiac history Patient known to have history of COPD, she is a former smoker, GERD. Plan; #1 review of the cardiac telemetry revealed normal sinus rhythm 2. Patient had mild elevation of cardiac biomarkers however she been stable clinically with no episode of chest pain 3. Review of the echocardiogram today showed LV function is preserved with no significant valve abnormality, no pericardial effusion noted. 4. No further episode of presyncope noted 5. Based on this clinical presentation plan will be to discharge the patient, she lives at home with her and advised her to come back to the hospital if she had any symptoms of chest pain or presyncope Prior to discharge patient walked on the medical floor with assistance to evaluate if she had any symptoms of chest pain. 6. Patient to be seen early at the cardiology outpatient with the plan for evaluating with the event monitor and assess with Persantine sestamibi myocardial perfusion study to assess for CAD.
--- NOTE | 2020-07-09 17:07 | PCM.DC ---
Discharge Instructions Outpatient Procedure Reason For Visit: PRESYNCOPE, ABNORMAL CARDIAC ENZYMES, DEHYDRATION Diet Discharge Diet: Low fat / Low cholesterol and 2000 mg Sodium Diet Activity Discharge Activity: Return to Normal Activity Follow Up Care Test Results: Test results from this visit will be discussed in further detail at your follow-up appointment, if applicable. Discharge Plan Admission Admit Date/Time: 07/08/20 15:02 Primary Reason for Your Visit: Dizziness, presyncope Attending Provider: Caitlyn Falk Primary Care Provider: Jonh Thomas Consulting Providers: Zehra Yao ; Juan Luis Francois ; Aldo Reardon ; Dago Goetz ; Jonh Laguans ; Regan Feldman ; Hazel Trevino ; Shmuel Lassiter ; Jeff Gómez ; Ruddy Allen NP ; Jailene Caldwell PA Instructions Additional Instructions / Restrictions: Do not drive unless evaluated by cardiology or your primary care doctor. Continue to keep yourself hydrated. Discharge Orders/Prescriptions Prescriptions: New aspirin 81 mg Tablet,Chewable 81 mg PO DAILY@0800 30 Days RF: 0 Continued fluticasone propion-salmeterol [Advair Diskus] 1 EACH blister with device 1 puff inhalation DAILY RF: 0 albuterol sulfate [ProAir HFA] 1 PUFF inhaler 1 puff inhalation Q6H PRN PRN (Reason: Sob &/Or Wheezing) RF: 0 Osphena 60 MG tablet 60 mg PO DAILY RF: 0 calcium carbonate 500 MG tablet 1,000 mg PO BID RF: 0 cholecalciferol (vitamin D3) 25 MCG tablet 25 mcg PO DAILY RF: 0 biotin 5,000 MCG tablet,disintegrating 5,000 mcg PO DAILY RF: 0 zoledronic ricd-hpatedxz-mzfwl 5 MG/100 ML piggyback 5 mg IV .YEARLY RF: 0 Incruse Ellipta 62.5 mcg/actuation Blister With Device 1 inh INHALATION DAILY RF: 0 pantoprazole 40 mg tablet,delayed release (DR/EC) 40 mg PO DAILY RF: 0 Other Ambulatory Orders: 30-Day Event Recorder (Routine) Location: None Selected Ordered By: Dr. Caitlyn Falk Referrals: Juan Luis Francois MD [STAFF PHYSICIAN] - In 1 Week Jonh Thomas MD [Primary Care Provider] - Disposition Patient Disposition: Home, self care
--- NOTE | 2020-07-09 17:10 | PCM.DC.SUM ---
Providers Date of Admission: 07/08/20 Primary Care Physician: Dr. Jonh Thomas MD Consultations 07/08/20 17:13 Consult: Cardiology Routine Consulting Provider: Dante Mckeon Reason for Consult: Near syncope, abnormal cardiac enzymes EMERGENT Consult: No MD Notified: Yes Date Notified:: 07/08/20 Time Notified: 15:02 Method of Notification: Verbal Reason For Visit: PRESYNCOPE, ABNORMAL CARDIAC ENZYMES, DEHYDRATION Diagnosis Discharge Diagnosis (1) Abnormal cardiac enzyme level: Status: Acute Code(s): R74.8 - Abnormal levels of other serum enzymes (2) Pre-syncope: Status: Acute Code(s): R55 - Syncope and collapse (3) GERD (gastroesophageal reflux disease): Status: Acute Code(s): K21.9 - Gastro-esophageal reflux disease without esophagitis Qualifiers: Esophagitis presence: without esophagitis Qualified Code(s): K21.9 - Gastro-esophageal reflux disease without esophagitis Medications at Discharge Home Medications albuterol sulfate [ProAir HFA] 1 puff INHALATION Q6H PRN PRN 06/30/16 fluticasone propion-salmeterol [Advair Diskus] 1 puff INHALATION DAILY 06/30/16 Osphena 60 mg PO DAILY 07/06/17 biotin 5,000 mcg PO DAILY 02/04/20 calcium carbonate 1,000 mg PO BID 02/04/20 cholecalciferol (vitamin D3) 25 mcg PO DAILY 02/04/20 zoledronic gvgn-ncqclias-xswuv 5 mg IV .YEARLY 02/04/20 Incruse Ellipta 1 inh INHALATION DAILY 07/08/20 pantoprazole 40 mg PO DAILY 07/08/20 aspirin 81 mg PO DAILY@0800 30 Days tab 07/09/20 Hospital Course Operations None Procedures 2-D Echocardiogram Summary of Care Provided Minutes Spent on Discharge: 40 Hospital Course: 59-year-old male with past medical history of COPD, GERD who comes in with complaints of near syncope, dizziness and diaphoresis. These were experience when she was mowing her lawn. She felt like she was going to pass out. She rested and the symptoms improved. She had a similar episode a month ago while she was exerting herself. She denied any specific chest pain or palpitations. Her EKG showed normal sinus rhythm, sinus bradycardia. She was admitted to telemetry floor and monitored. Her troponins trended down from 0.157-0.088. This was felt to be indeterminate. She underwent 2D echo that showed EF of 60 to 65%, normal LV function. Patient was seen by cardiology who recommended discharge with a Holter monitor and as well as follow-up within 2 weeks with cardiology for stress test as patient was insistent on being discharged. Physical Exam Narrative On the day of discharge, patient was seen and examined. Denied any new complaints. Physical exam: General: Alert, Oriented x3, Cooperative, No apparent distress, Well developed HEENT: Atraumatic Oral: Moist Mucosa Neck: Supple Lungs: Clear to auscultation Cardiovascular: HS I+II, regular, no murmurs Abdomen: Bowel Sounds Present, Soft, Non Tender Extremities: No edema Skin: No rashes, No breakdown Neurological: Grossly intact Psych/Mental Status: Appropriate ABG / Lab / Microbiology Data Result Diagrams: 07/09/20 05:20 07/09/20 05:20 Laboratory: Laboratory Results - last 24 hr 07/08/20 07/08/20 07/08/20 15:03 17:41 20:46 WBC RBC Hgb Hct MCV MCH MCHC RDW Std Deviation RDW Coeff of Dahlia Plt Count MPV Immature Gran % (Auto) Neut % (Auto) Lymph % (Auto) [place] % (Auto) Eos % (Auto) Baso % (Auto) Absolute Neuts (auto) Absolute Lymphs (auto) Nucleated RBC % Sodium Potassium Chloride Carbon Dioxide Anion Gap BUN Creatinine Estim Creat Clear Calc Est GFR (MDRD) Af Amer Est GFR (MDRD) Non-Af BUN/Creatinine Ratio Glucose Calcium Troponin I 0.117 H 0.088 H Triglycerides 55 Cholesterol 175 LDL Cholesterol 74 VLDL Cholesterol 11 HDL Cholesterol 90 TSH 1.03 07/09/20 07/09/20 05:20 05:20 WBC 4.7 RBC 4.35 Hgb 12.4 Hct 39.5 MCV 90.8 MCH 28.5 MCHC 31.4 L RDW Std Deviation 44.3 H RDW Coeff of Dahlia 13.2 Plt Count 201 MPV 10.6 Immature Gran % (Auto) 0.400 Neut % (Auto) 44.5 L Lymph % (Auto) 39.4 [place] % (Auto) 10.5 H Eos % (Auto) 4.1 Baso % (Auto) 1.1 H Absolute Neuts (auto) 2.1 Absolute Lymphs (auto) 1.84 Nucleated RBC % 0 Sodium 142 Potassium 3.8 Chloride 111 H Carbon Dioxide 25.0 Anion Gap 6 BUN 21 H Creatinine 0.89 Estim Creat Clear Calc 52.38 Est GFR (MDRD) Af Amer 83 Est GFR (MDRD) Non-Af 68 BUN/Creatinine Ratio 23.5 H Glucose 79 Calcium 8.2 L Troponin I Triglycerides Cholesterol LDL Cholesterol VLDL Cholesterol HDL Cholesterol TSH Radiography Diagnostic Testing: Radiology Impression Echocardiogram 07/08/20 17:13 Interpretation Summary The estimated ejection fraction is EF 60-65% %. Normal LV systolic function No significant valvular abnormalities Ordering Physician: Alden Whiteside Referring Physician: Jonh Thomas Performed By: Taina Sanders, BRITTANY, RVT D/C Instructions Discharge Diet: Low fat / Low cholesterol and 2000 mg Sodium Diet Discharge Activity: Return to Normal Activity Meaningful Use Info Meaningful Use Diagnoses (Choose all that apply): None applicable Discharge Plan Admission Admit Date/Time: 07/08/20 15:02 Primary Reason for Your Visit: Dizziness, presyncope Attending Provider: Caitlyn Falk Primary Care Provider: Jonh Thomas Consulting Providers: Zehra Yao ; Juan Luis Francois ; Aldo Reardon ; Dago Goetz ; Jonh Lagunas ; Regan Feldman ; Hazel Trevino ; Shmuel Lassiter ; Jeff Gómez ; Ruddy Allen DOOR HANGER ; Jailene Caldwell PA Instructions Additional Instructions / Restrictions: Do not drive unless evaluated by cardiology or your primary care doctor. Continue to keep yourself hydrated. Discharge Orders/Prescriptions Prescriptions: New aspirin 81 mg Tablet,Chewable 81 mg PO DAILY@0800 30 Days RF: 0 Continued fluticasone propion-salmeterol [Advair Diskus] 1 EACH blister with device 1 puff inhalation DAILY RF: 0 albuterol sulfate [ProAir HFA] 1 PUFF inhaler 1 puff inhalation Q6H PRN PRN (Reason: Sob &/Or Wheezing) RF: 0 Osphena 60 MG tablet 60 mg PO DAILY RF: 0 calcium carbonate 500 MG tablet 1,000 mg PO BID RF: 0 cholecalciferol (vitamin D3) 25 MCG tablet 25 mcg PO DAILY RF: 0 biotin 5,000 MCG tablet,disintegrating 5,000 mcg PO DAILY RF: 0 zoledronic wzdf-dgidpdvh-xzsrg 5 MG/100 ML piggyback 5 mg IV .YEARLY RF: 0 Incruse Ellipta 62.5 mcg/actuation Blister With Device 1 inh INHALATION DAILY RF: 0 pantoprazole 40 mg tablet,delayed release (DR/EC) 40 mg PO DAILY RF: 0 Other Ambulatory Orders: 30-Day Event Recorder (Routine) Location: None Selected Ordered By: Dr. Caitlyn Falk Referrals: Juan Luis Francois MD [STAFF PHYSICIAN] - In 1 Week Jonh Thomas MD [Primary Care Provider] - Disposition Patient Disposition: Home, self care Visit Charges Inpatient E&M: [id number] [facility]
== END 2020-07-09 18:15 | disposition home or self-care (01) | DRG 312 ==
LOC: ED 14:42 → PCU 07-09 07:23
PROVIDERS: Emergency Medicine; Admitting Provider Hospitalist; Emergency Provider Emergency Medicine; PCP Family Medicine; Visit Provider Internal Medicine
DX: R55 Syncope and collapse (principal); E86.0 Dehydration; R79.89 Other specified abnormal findings of blood chemistry; K21.9 Gastro-esophageal reflux disease without esophagitis; J44.9 Chronic obstructive pulmonary disease, unspecified; Z87.891 Personal history of nicotine dependence; Z79.51 Long term (current) use of inhaled steroids
CPT/HCPCS: 36415; 71045; 80048; 80061; 84443; 84484; 85025; 93005; 93306; 94640; 99251; 99281; 99283; J7030; A4216; G0463

== ENCOUNTER → 2020-07-13 09:26 | Outpatient (CLI) | payer OTHER, SELFPAY ==
[2020-07-08 17:14] VITALS: BMI 20.1
[2020-07-13 10:16] LABS: Erythrocyte Sedimentation Rate 6 mm/hr (0-30)
[2020-07-13 10:39] LABS: CPK Total, Creatine Kinase 87 U/L (26-192); CRP < 2.90 mg/L (0.0-3.0)
[2020-07-14 16:24] LABS: ANTINUCLEAR ANTIBODIES DIRECT Negative (Negative)
== END ==
PROVIDERS: PCP Family Medicine; Referring Provider Family Medicine; Visit Provider Family Medicine
DX: R74.8 Abnormal levels of other serum enzymes (principal)
CPT/HCPCS: 36415; 82550; 84484; 85652; 86038; 86140

== ENCOUNTER 2020-08-10 06:47 | Day surgery (SDC) | payer OTHER, SELFPAY ==
[2020-08-02 10:33] VITALS: BMI 20.1
[2020-08-04 13:32] LABS: Absolute Lymphocyte Count 2.26 X10^3/uL (0.83-4.51); Basophil# 0.06 X10^3/uL; Basophil% 0.8 % (0-1); Eosinophil# 0.25 X10^3/uL; Eosinophils% 3.5 % (0-5); Hematocrit 41.7 % (37-47); Hemoglobin 13.4 g/dL (12.0-15.0); Lymphocyte # 2.26 X10^3/ul (0.83-4.51); Lymphocyte % 31.4 % (19-41); Mean Corp Hgb Conc 32.1 g/dL (32-36); Mean Corpuscular Hgb 28.7 pg (27.0-32.0); Mean Corpuscular Volume 89.3 fL (81-99); Mean Platelet Vol. 10.1 fl (6.2-12.0); Monocyte% 8.3 % (0-10); NRBC Flagged by Analyzer 0 % (0-5); Neutrophil # 4.01 X10^3/uL (2.7-7.7); Neutrophil % 55.7 % (47-70); Platelet Count 242 K/mm3 (150-450); RBC Distribution Width CV 13.1 % (11.6-14.6); RBC Distribution Width SD 42.7 fl (35.1-43.9); Red Blood Count 4.67 M/mm3 (4.2-5.4); White Blood Count 7.2 K/mm3 (4.4-11.0)
[2020-08-04 13:45] LABS: Anion Gap 4 (5-15); BUN 25 mg/dL (7-18); BUN/Creat Ratio 23.8 RATIO (10-20); Calcium,Total 8.9 mg/dL (8.5-10.1); Chloride 105 mmol/L (98-107); Creatinine, Serum 1.05 mg/dL (0.55-1.02); EST Glomerular Filtration Rate 57 mL/min (>60); Est Glom Filt Rate - Afr Amer 68 mL/min (>60); Glucose 85 mg/dL (74-106); Potassium 4.1 mmol/L (3.5-5.1); Sodium Level 139 mmol/L (136-145)
[2020-08-05 11:24] VITALS: BMI 21.4
--- NOTE | 2020-08-10 08:12 | CL.D_ITS ---
Patient Name: JULI LIU Study Date: 08/10/2020 Performing: Juan Luis Francois MD Ht: 62 inches 157 cm : 1960 Wt: 117 lbs 53 kg Age: 59 Gender: female BSA: 1.52 PROCEDURE(S) PERFORMED LT92-PWV/COR/LV CLINICAL PROFILE AND INDICATIONS Indications: Syncope Heart Failure: None Stress/Imaging Stress/Image Study Performed: No CAD Presentations: Symptom unlikely to be ischemic. CONCLUSIONS Normal coronary arteries Normal LV size, wall motion,and systolic function RECOMMENDATIONS Medical therapy DESCRIPTION OF PROCEDURE The patient arrived to the procedure lab. The risks and benefits of the procedure as well as a full d escription of our services here and current unavailability of surgical backup were fully explained to the patient and/or their significant other prior to the catheterization. The Timeout was completed, verifying the correct patient and procedure. The patient's procedural site was prepped and draped in the usual fashion. Local anesthetic was given subcutaneously to right radial region with Lidocaine 2% . Using a modified Seldinger technique, arterial access was obtained via the right radial artery, a 6 Fr sheath was inserted. Left Coronary Artery selective angiography was performed in multiple views u sing a 5 Fr. 4.0 [place] catheter. Right Coronary Artery selective angiography was then performed in mu ltiple views using a 5 Fr. 4.0 [place] catheter. Left Ventriculography was performed in [place] projection using a 5 Fr. Pigtail catheter. LV to AO pullback pressures were then recorded.The arterial sheath was pulled and a TR Band was applied for hemostasis 15cc air inserted CORONARY ANGIOGRAPHY DOMINANCE: Left Dominant LEFT HEART ASSESSMENT Left Ventricular Ejection Fraction: by LV Gram 60 % Normal LV wall motion Normal Left Ventricular systolic function Normal Left Ventricular systolic function LEFT MAIN: Angiographically normal LEFT ANTERIOR DESCENDING ARTERY: Angiographically normal CIRCUMFLEX ARTERY: Angiographically normal RIGHT CORONARY ARTERY: Angiographically normal COMPLICATIONS No Complications PROCEDURE MEDICATIONS Versed 1 mg IV Fentanyl 50 mcg IV Oxygen: 2 L/min via nasal cannula Heparin given IA 08/10/2020 07:57:47 SUMMARY OF HEMODYNAMIC DATA Time AIR REST ECG 07:10:07 AO 107/62 (80) SA 07:59:08 LV 134/1, 3 08:03:21 LV 139/2, 5 08:03:27 LV 110/2, 5 08:04:36 LVp 115/1, 7 08:04:40 AO 123/57 (85) 08:04:45 Signed By Juan Luis Francois MD On 08/10/2020 08:11:23 Juan Luis Francois MD
== END 2020-08-10 12:00 | disposition home or self-care (01) ==
LOC: CLSP 06:48
PROVIDERS: Nurse Practitioner Family; PCP Family Medicine; Referring Provider Internal Medicine Cardiovascular Disease; Visit Provider Internal Medicine Cardiovascular Disease
DX: R55 Syncope and collapse (principal); R06.02 Shortness of breath; R07.9 Chest pain, unspecified; R79.89 Other specified abnormal findings of blood chemistry; R53.83 Other fatigue; I48.0 Paroxysmal atrial fibrillation; J44.9 Chronic obstructive pulmonary disease, unspecified; K21.9 Gastro-esophageal reflux disease without esophagitis; Z87.891 Personal history of nicotine dependence; Z79.51 Long term (current) use of inhaled steroids; Z79.82 Long term (current) use of aspirin; Z79.899 Other long term (current) drug therapy
CPT/HCPCS: 36415; 80048; 85025; 93458; 99152; 99153; J7040; Q9967; C1769; C1894

== ENCOUNTER → 2020-10-26 14:18 | Outpatient (CLI) | payer OTHER, SELFPAY ==
[2020-09-06 10:00] VITALS: BMI 21.5
[2020-10-26 14:29] VITALS: BP 112/56; PULSE 60; RESP 16; TEMP 35.8; O2SAT 97; BMI 21.4
[2020-10-26] MEDS: 0.9% NaCl Peripheral Flush Adult/Peds IV (14:33)
[2020-10-26] MEDS: Zoledronic Acid 5 MG 100 ML 300 MG IV (14:33)
== END ==
PROVIDERS: PCP Family Medicine; Referring Provider Family Medicine; Visit Provider Family Medicine
DX: M81.0 Age-related osteoporosis without current pathological fracture (principal)
CPT/HCPCS: 96365; A4216; J3489

== ENCOUNTER → 2020-12-31 14:34 | Outpatient (CLI) | payer OTHER, SELFPAY ==
[2020-12-31 17:34] LABS: Absolute Lymphocyte Count 2.58 X10^3/uL (0.83-4.51); Absolute Neutrophil Count 4.7 X10^3/uL (2.0-7.7); Basophil# 0.08 X10^3/uL; Eosinophil# 0.18 X10^3/uL; Eosinophils% 2.2 % (0-5); Hematocrit 41.8 % (37-47); Hemoglobin 13.3 g/dL (12.0-15.0); Lymphocyte # 2.58 X10^3/ul (0.83-4.51); Lymphocyte % 31.7 % (19-41); Mean Corp Hgb Conc 31.8 g/dL (32-36); Mean Corpuscular Hgb 28.6 pg (27.0-32.0); Mean Corpuscular Volume 89.9 fL (81-99); Mean Platelet Vol. 10.5 fl (6.2-12.0); Monocyte# 0.54 X10^3/uL; Monocyte% 6.6 % (0-10); NRBC Flagged by Analyzer 0 % (0-5); Neutrophil # 4.73 X10^3/uL (2.7-7.7); Neutrophil % 58.1 % (47-70); Platelet Count 275 K/mm3 (150-450); RBC Distribution Width CV 13.3 % (11.6-14.6); RBC Distribution Width SD 43.8 fl (35.1-43.9); Red Blood Count 4.65 M/mm3 (4.2-5.4); White Blood Count 8.1 K/mm3 (4.4-11.0)
[2020-12-31 18:01] LABS: ALB/GLOB Ratio 1.1 RATIO (0.9-2.4); AST(SGOT) 16 U/L (15-37); Alanine Aminotransfer ALT/SGPT 19 U/L (13-56); Albumin, Serum 3.7 g/dL (3.2-5.0); Alkaline Phosphatase 55 U/L (45-117); Anion Gap 8 (5-15); BUN 23 mg/dL (7-18); BUN/Creat Ratio 21.7 RATIO (10-20); Calcium,Total 8.9 mg/dL (8.5-10.1); Chloride 106 mmol/L (98-107); Creatinine, Serum 1.06 mg/dL (0.55-1.02); EST Glomerular Filtration Rate 56 mL/min (>60); Est Glom Filt Rate - Afr Amer 68 mL/min (>60); Globulin 3.5 g/dL (2.2-4.2); Glucose 89 mg/dL (74-106); Magnesium 1.9 mg/dL (1.6-2.6); Potassium 4.2 mmol/L (3.5-5.1); Protein, Total 7.2 g/dL (6.4-8.2); Sodium Level 141 mmol/L (136-145); Thyroid Stim Hormone (TSH) 1.08 uIU/mL (0.358-3.74)
== END ==
PROVIDERS: PCP Family Medicine; Referring Provider Family Medicine; Visit Provider Family Medicine
DX: M81.0 Age-related osteoporosis without current pathological fracture (principal); I48.91 Unspecified atrial fibrillation
CPT/HCPCS: 36415; 80053; 82306; 83735; 84443; 85025

== ENCOUNTER → 2021-10-28 | Outpatient (CLI) | payer BC, SELFPAY ==
[2021-10-28 12:57] VITALS: BP 131/86; PULSE 60; RESP 16; TEMP 35.7; O2SAT 96; BMI 21.0
[2021-10-28] MEDS: 0.9% NaCl Peripheral Flush Adult/Peds IV (13:07)
[2021-10-28] MEDS: 0.9% NaCl IVPB Med Flush (250 mL) 15 ML IV (13:08)
[2021-10-28] MEDS: Zoledronic Acid 5 MG 100 ML 300 MG IV (13:08)
[2021-10-28 13:47] VITALS: BP 125/69; PULSE 55; RESP 16; TEMP 36; O2SAT 96
== END | disposition home or self-care (01) ==
LOC: MEDOUTP 12:46
PROVIDERS: PCP Family Medicine; Referring Provider Family Medicine; Visit Provider Family Medicine
DX: M81.0 Age-related osteoporosis without current pathological fracture (principal)
CPT/HCPCS: 96365; J7050; A4216; J3489

== ENCOUNTER 2022-01-11 07:15 | Emergency (ER) | payer BC, SELFPAY ==
[2022-01-11 07:16] VITALS: BP 167/93; PULSE 97; RESP 16; TEMP 35.7; O2SAT 99; BMI 18.8
[2022-01-11 07:24] VITALS: BP 167/93; PULSE 97; RESP 16; TEMP 35.7; O2SAT 99
--- NOTE | 2022-01-11 07:45 | ED.VIS.CHEST ---
HPI History of Present Illness Chief Complaint: Palpitations Informant: patient Onset/Context/Timing Onset: Yesterday Activity at onset: gradual Timing: Intermittent Quality: Positive for - (Racing) Location: Substernal Worsened By: Nothing Relieved By: Rest Associated Symptoms: Positive for Diaphoresis, Lightheadedness and Palpitations; Negative for Nausea, Vomiting, Dyspnea, Cough, Fever or Acid Reflux Narrative Narrative: Patient presents with palpitations that have been intermittent since yesterday. Patient states it feels like her heart is racing. Patient denies any pain. Patient states it is better when she is able to rest. Patient admits to some diaphoresis. Patient denies any nausea or vomiting. Patient denies any shortness of breath or cough. Patient does admit to some lightheadedness. Patient states nothing makes it worse. Patient states she has a history of paroxysmal atrial fibrillation and this feels similar to prior episodes of that. CVD Risk Factors: Negative for Hypertension, Diabetes, Hypercholesterolemia, Family History 1' </=55 or Smoking PE Risk Factors: Negative for Recent Travel/Surgery, Recent Immobilization, Prior DVT or PE or Cancer [facility] Medical History Abnormal cardiac enzyme level (07/08/20) COPD (chronic obstructive pulmonary disease) Former smoker GERD (gastroesophageal reflux disease) History of ganglion cyst Paroxysmal atrial fibrillation (07/2020) Pre-syncope Stenosis of left external auditory canal Home Medications albuterol sulfate 90 mcg/actuation aerosol inhaler (ProAir HFA) 1 puff inhalation Q6H PRN PRN Sob &/Or Wheezing 06/30/16 [History Last Taken 3 Days Ago ~07/05/20] fluticasone 100 mcg-salmeterol 50 mcg/dose blistr powdr for inhalation (Advair Diskus) 1 puff inhalation DAILY 06/30/16 [History Last Taken 07/08/20] ospemifene 60 mg tablet (Osphena) 60 mg PO DAILY 07/06/17 [History Last Taken 07/08/20] biotin 5,000 mcg disintegrating tablet 5,000 mcg PO DAILY 02/04/20 [History Last Taken 07/08/20] calcium carbonate 500 mg calcium (1,250 mg) tablet 1,000 mg PO BID 02/04/20 [History Last Taken 07/08/20] cholecalciferol (vitamin D3) 25 mcg (1,000 unit) tablet 25 mcg PO DAILY 02/04/20 [History Last Taken 07/08/20] zoledronic acid 5 mg/100 mL in mannitol 5 %-water intravenous piggybck 5 mg IV .YEARLY 02/04/20 [History Last Taken 8 Months Ago ~11/08/19] pantoprazole 40 mg tablet,delayed release 40 mg PO DAILY GERD 07/08/20 [History Last Taken 07/08/20] umeclidinium 62.5 mcg/actuation blister powder for inhalation (Incruse Ellipta) 1 inh inhalation DAILY 07/08/20 [History Last Taken 07/08/20] aspirin 81 mg chewable tablet 81 mg PO DAILY@0800 30 days 07/09/20 [Rx Last Taken 08/10/20] diltiazem HCl 60 mg capsule,extended release 12 hr 30 mg PO DAILY 09/06/20 [History Last Taken Unknown] Allergy/AdvReac Type Severity Reaction Status Date / Time No Known Allergies Allergy Verified 01/11/22 07:16 Family History Father Lung cancer Surgical History History of cholecystectomy History of left heart catheterization (08/10/20) History of tubal ligation Social History Smoking Status: Former smoker ROS ROS ED Constitutional Constitutional ED: Denies chills or fever(s) Eyes Eyes: Denies blurry vision or change in vision ENT ENT ED: Denies rhinorrhea or sore throat Cardiovascular Cardiovascular: Reports palpitations; Denies chest pain Respiratory/Chest Respiratory/Chest: Denies cough or dyspnea Gastrointestinal Gastrointestinal: Denies nausea or vomiting Genitourinary Genitourinary ED: Denies dysuria or hematuria Musculoskeletal Musculoskeletal: Reports back pain; Denies neck pain Integumentary Denies abscess or rash Neurologic Neurologic: Reports headache(s); Denies weakness Allergic/Immunologic Allergic/Immunologic ED: Denies mouth swelling or urticaria EXAM Physical Exam Const Vital Signs: 01/11/22 07:16 01/11/22 07:24 01/11/22 07:26 Temperature 96.3 F L 96.3 F L Temperature Source Temporal Temporal Pulse Rate 97 97 Respiratory Rate 16 16 Respiratory Effort Normal Non-Labored Respiratory Pattern Blood Pressure 167/93 H 167/93 H Blood Pressure Mean 117 117 Pulse Ox 99 99 Oxygen Delivery Method Room Air Room Air 01/11/22 07:26 Temperature Temperature Source Pulse Rate Respiratory Rate Respiratory Effort Normal Non-Labored Respiratory Pattern Normal Blood Pressure Blood Pressure Mean Pulse Ox Oxygen Delivery Method Positive well nourished and well developed General Appearance ED: well developed and NAD HEENT Reports moist mucous membranes Neck supple and no JVD Resp normal respiratory effort and clear to auscultation bilaterally Cardio regular rate, regular rhythm and no murmurs GI normal to inspection, nondistended, normoactive bowel sounds and non-tender Palpation: soft Extremity normal to inspection General Extremety ED: Negative for edema or tenderness General Extremity: Negative for edema Neuro oriented x3, CN's II-XII intact bilaterally and no sensory deficits noted Sensorium / Orientation: alert Motor Exam: strength 5/5 throughout Psych mental status grossly normal Skin no rashes or lesions noted Heart Score History: Slightly/Non-Suspicious ECG: Nonspecific Repolarization Age: >45 - <65 years Risk Factors: No Risk Factors Troponin: </= Normal Limit Score: 2 MDM MDM MDM Narrative Medical decision making narrative: EKG was obtained. On my interpretation, it showed a normal sinus rhythm with a rate of 62. There is a shortened HI interval of approximately 80 ms QRS interval and QTc intervals are normal.. [place] was normal. There are no acute ST or T wave changes. Portable 1 view chest x-ray was obtained. On my interpretation, lung downs are clear. There is normal cardiac silhouette. Bony thorax is normal. There is no acute process noted. Radiologist also interpreted the x-ray and agrees. CBC was within normal limits. Comprehensive metabolic profile showed a mildly elevated creatinine 1.30. BUN was 23. High-sensitivity troponin was normal at 8. PT was INR and PTT were within normal limits. Patient was given IV fluids. Patient is feeling better on reevaluation. Patient was advised of her findings. Patient was instructed to drink plenty of fluids. Patient has a HEART score of 2. Patient was advised that this is low risk for acute cardiac event. Patient was instructed to follow-up with her primary care physician in 5 to 7 days. Patient understood and was agreeable with the plan. All questions were answered. Lab Data Attestation: I reviewed the patient's lab results. Labs: Laboratory Results - last 24 hr 01/11/22 01/11/22 01/11/22 07:25 07:25 08:00 WBC 8.5 RBC 4.93 Hgb 14.5 Hct 43.6 MCV 88.4 MCH 29.4 MCHC 33.3 RDW Std Deviation 42.9 RDW Coeff of Dahlia 13.2 Plt Count 276 MPV 10.9 Immature Gran % (Auto) 0.500 Neut % (Auto) 57.6 Lymph % (Auto) 30.4 [place] % (Auto) 8.0 Eos % (Auto) 2.7 Baso % (Auto) 0.8 Absolute Neuts (auto) 4.9 Absolute Lymphs (auto) 2.59 Nucleated RBC % 0 PT 13.5 INR 1.1 APTT 24.4 Sodium 139 Potassium 3.7 Chloride 108 H Carbon Dioxide 24.0 Anion Gap 7 BUN 23 H Creatinine 1.30 H Estim Creat Clear Calc 32.73 Est GFR (MDRD) Af Amer 53 L Est GFR (MDRD) Non-Af 44 L BUN/Creatinine Ratio 17.7 Glucose 110 H Calcium 9.1 Total Bilirubin 0.60 AST 20 ALT 16 Alkaline Phosphatase 54 Troponin I High Sens 8 Total Protein 7.5 Albumin 3.9 Globulin 3.6 Albumin/Globulin Ratio 1.1 Radiography Chest X-Ray - ED: 1 View, Read by ED Physician, Read by Radiologist and No Acute Disease Diagnostic Testing: Clinical Impression(s) from Imaging Studies Chest X-Ray 01/11/22 08:00 IMPRESSION: Hyperinflation. The lungs are clear. Electronically Signed: Gray Allen MD at 8:19 EDT , EKG Initial EKG: Attestation: I personally reviewed and interpreted this EKG as follows: Interpretation: Sinus Rhythm (With a short HI interval with a rate of 62) and No Acute Injury Pattern Prior EKG tracings: available for review Prior: Unchanged (07/08/2020) Discharge Plan Triage Chief Complaint: Palpitations ED Provider: Jonh Oconnor Dx/Rx/DC Orders Clinical Impression: Heart palpitations Instructions: ED Palpitations Prescriptions: No Action diltiazem HCl 60 mg capsule,extended release 12 hr 30 mg PO DAILY fluticasone propion-salmeterol [Advair Diskus] 1 EACH blister with device 1 puff inhalation DAILY Label Comments: albuterol sulfate [ProAir HFA] 1 PUFF inhaler 1 puff inhalation Q6H PRN PRN (Reason: Sob &/Or Wheezing) Osphena 60 MG tablet 60 mg PO DAILY calcium carbonate 500 MG tablet 1,000 mg PO BID cholecalciferol (vitamin D3) 25 MCG tablet 25 mcg PO DAILY biotin 5,000 MCG tablet,disintegrating 5,000 mcg PO DAILY zoledronic sidb-[id number]-vdvlp 5 MG/100 ML piggyback 5 mg IV .YEARLY Incruse Ellipta 62.5 mcg/actuation Blister With Device 1 inh INHALATION DAILY pantoprazole 40 mg tablet,delayed release (DR/EC) 40 mg PO DAILY Label Comments: TAKE 1 TABLET BY MOUTH DAILY aspirin 81 mg Tablet,Chewable 81 mg PO DAILY@0800 30 Days 0RF Rx Instructions: taking 3 days a week Primary Care Provider: Jonh Thomas Referrals: Jonh Thomas MD [Primary Care Provider] - 5-7 Days Disposition Disposition: Home, Self Care
--- NOTE | 2022-01-11 08:00 | RAD_ITS ---
STUDY: X-RAY CHEST REASON FOR EXAM: Female, 61 years old. Headaches, chills and fever. Intermittent palpitations. TECHNIQUE: Single AP portable view of the chest. COMPARISON: Comparison is made with prior study of 07/08/2020. FINDINGS: EKG electrodes are seen. Hyperinflation. No acute infiltrate is seen. There is no demonstrated pleural abnormality. Normal size heart. Normal mediastinum and juan. Normal visualized pulmonary arteries. Normal visualized aortic arch and descending thoracic aorta. Normal visualized thoracic spine. Normal visualized ribs, clavicles, and shoulders. There is no demonstrated abnormality of the visualized soft tissue structures of the upper abdomen. RAD/Chest 1 View (Portable) IMPRESSION: Hyperinflation. The lungs are clear. Electronically Signed: Gray Allen MD at 8:19 EDT ,
[2022-01-11 08:09] LABS: Absolute Lymphocyte Count 2.59 X10^3/uL (0.83-4.51); Absolute Neutrophil Count 4.9 X10^3/uL (2.0-7.7); Basophil# 0.07 X10^3/uL; Basophil% 0.8 % (0-1); Eosinophil# 0.23 X10^3/uL; Eosinophils% 2.7 % (0-5); Hematocrit 43.6 % (37-47); Hemoglobin 14.5 g/dL (12.0-15.0); Lymphocyte # 2.59 X10^3/ul (0.83-4.51); Lymphocyte % 30.4 % (19-41); Mean Corp Hgb Conc 33.3 g/dL (32-36); Mean Corpuscular Hgb 29.4 pg (27.0-32.0); Mean Corpuscular Volume 88.4 fL (81-99); Mean Platelet Vol. 10.9 fl (6.2-12.0); Monocyte# 0.68 X10^3/uL; NRBC Flagged by Analyzer 0 % (0-5); Neutrophil # 4.91 X10^3/uL (2.7-7.7); Neutrophil % 57.6 % (47-70); Platelet Count 276 K/mm3 (150-450); RBC Distribution Width CV 13.2 % (11.6-14.6); RBC Distribution Width SD 42.9 fl (35.1-43.9); Red Blood Count 4.93 M/mm3 (4.2-5.4); White Blood Count 8.5 K/mm3 (4.4-11.0)
[2022-01-11 08:26] LABS: ALB/GLOB Ratio 1.1 RATIO (0.9-2.4); AST(SGOT) 20 U/L (15-37); Alanine Aminotransfer ALT/SGPT 16 U/L (13-56); Albumin, Serum 3.9 g/dL (3.2-5.0); Alkaline Phosphatase 54 U/L (45-117); Anion Gap 7 (5-15); BUN 23 mg/dL (7-18); BUN/Creat Ratio 17.7 RATIO (10-20); Calcium,Total 9.1 mg/dL (8.5-10.1); Chloride 108 mmol/L (98-107); EST Glomerular Filtration Rate 44 mL/min (>60); Est Glom Filt Rate - Afr Amer 53 mL/min (>60); Estimated Creatinine Clearance 32.73 ml/min; Globulin 3.6 g/dL (2.2-4.2); Glucose 110 mg/dL (74-106); Potassium 3.7 mmol/L (3.5-5.1); Protein, Total 7.5 g/dL (6.4-8.2); Sodium Level 139 mmol/L (136-145); Troponin-I HS 8 pg/mL (3.0-54.0)
[2022-01-11 09:14] LABS: International Normalized Ratio 1.1; Prothrombin Time (Protime)PT. 13.5 SECONDS (11.7-14.9)
[2022-01-11 09:15] LABS: Partial Thromboplast Time 24.4 Seconds (24.1-36.2)
[2022-01-11 09:36] VITALS: BP 146/66; PULSE 62; RESP 15; TEMP 36.2; O2SAT 97
== END 2022-01-11 09:41 | disposition home or self-care (01) ==
PROVIDERS: Emergency Provider Emergency Medicine; PCP Family Medicine; Visit Provider Emergency Medicine
DX: R00.2 Palpitations (principal); J44.9 Chronic obstructive pulmonary disease, unspecified; I48.0 Paroxysmal atrial fibrillation; Z87.891 Personal history of nicotine dependence
CPT/HCPCS: 71045; 80053; 84484; 85025; 85610; 85730; 87428; 93005; 96360; 99284; J7030; J7040

== ENCOUNTER → 2022-01-12 | Outpatient (CLI) | payer BC, SELFPAY ==
[2022-01-12 18:24] LABS: ALB/GLOB Ratio 1.2 RATIO (0.9-2.4); AST(SGOT) 30 U/L (15-37); Alanine Aminotransfer ALT/SGPT 18 U/L (13-56); Albumin, Serum 3.7 g/dL (3.2-5.0); Alkaline Phosphatase 56 U/L (45-117); Anion Gap 7 (5-15); BUN 18 mg/dL (7-18); BUN/Creat Ratio 20.2 RATIO (10-20); Calcium,Total 9.1 mg/dL (8.5-10.1); Chloride 108 mmol/L (98-107); Creatinine, Serum 0.89 mg/dL (0.55-1.02); EST Glomerular Filtration Rate 68 mL/min (>60); Est Glom Filt Rate - Afr Amer 82 mL/min (>60); Globulin 3.1 g/dL (2.2-4.2); Glucose 83 mg/dL (74-106); Potassium 4.2 mmol/L (3.5-5.1); Protein, Total 6.8 g/dL (6.4-8.2); Sodium Level 139 mmol/L (136-145)
== END | disposition home or self-care (01) ==
LOC: MFPLAB 16:02
PROVIDERS: PCP Family Medicine; Referring Provider Family Medicine; Visit Provider Family Medicine
DX: R79.89 Other specified abnormal findings of blood chemistry (principal)
CPT/HCPCS: 36415; 80053

== ENCOUNTER → 2022-09-07 | Outpatient (CLI) | payer BC, SELFPAY ==
--- NOTE | 2022-09-08 10:56 | PFT ---
INTRODUCTION: The patient is a 61-year-old female that presents for pulmonary function studies secondary to a diagnosis of COPD. Respiratory therapy reported good patient effort. Bronchodilators were used during testing. INTERPRETATION: Forced expiration spirometry demonstrates the presence of a moderate large airways obstructive ventilatory defect. There was no significant response to aerosolized bronchodilators. Spirograms are of fair quality but do not plateau indicating slow emptying of the lungs. Body plethysmography was performed and revealed an elevated TLC and RV, indicative of underlying hyperinflation and air trapping. Diffusing capacity by single breath CO was within normal limits at 71% of predicted. IMPRESSION: Irreversible moderate large airways obstructive ventilatory defect with associated hyperinflation and air trapping.
== END | disposition home or self-care (01) ==
LOC: PSN 11:51
PROVIDERS: PCP Family Medicine; Referring Provider Family Medicine; Visit Provider Family Medicine
DX: J44.9 Chronic obstructive pulmonary disease, unspecified (principal)
CPT/HCPCS: 94060; 94726; 94729

== ENCOUNTER 2022-10-18 08:30 | Emergency (ER) | payer BC, SELFPAY ==
[2022-10-18 08:31] VITALS: BP 134/82; PULSE 72; RESP 14; TEMP 36.2; O2SAT 99; BMI 20.2
--- NOTE | 2022-10-18 08:51 | EKG12_ITS ---
Test Reason : PALPITATIONS Blood Pressure : / mmHG Vent. Rate : 064 BPM Atrial Rate : 064 BPM P-R Int : 096 ms QRS Dur : 062 ms QT Int : 398 ms P-R-T Axes : 069 051 080 degrees QTc Int : 410 ms Sinus rhythm with short MI Nonspecific ST and T wave abnormality Abnormal ECG Confirmed by MANI RAMESH, TREVIN ([id number]), technical writer and editor MICHELLE ANDRADE ([id number]) on 10/23/2022 8:15:48 AM Referred By: LAINE/JAMES Confirmed By:ROMEO SINGLETON MD
--- NOTE | 2022-10-18 08:56 | EX.ED.DYSGE1 ---
HPI History of Present Illness Chief Complaint: Palpitations Informant: patient Narrative Narrative: Presents with symptoms of palpitations around 730 and this morning. She was doing work on light activities. There is no chest pains. No lightheaded symptoms. She has been dealing with a chest cold for the past week. She took Robitussin DM 2 evenings ago. Unclear of any Sudafed in it. Has not taken anything yesterday. Denies nausea or vomiting. Reports history of paroxysmal A-fib on Cardizem and reports taking aspirin 3 times a week. She is followed by Dr. Francois. No stroke history. She is concerned with her A-fib history. Reports 3 COVID test negative including 1 this morning. Workup initiated reviewing records, cardiac cath August 2020 normal coronary arteries and normal ejection fraction. Office visit with an event monitor noted paroxysmal A-fib were diltiazem and aspirin was recommended by cardiology. Prior similar symptoms: Yes [facility] Medical History Abnormal cardiac enzyme level (07/08/20) COPD (chronic obstructive pulmonary disease) Former smoker GERD (gastroesophageal reflux disease) History of ganglion cyst Paroxysmal atrial fibrillation (07/2020) Pre-syncope Stenosis of left external auditory canal Home Medications albuterol sulfate 90 mcg/actuation aerosol inhaler (ProAir HFA) 1 puff inhalation Q6H PRN PRN Sob &/Or Wheezing 06/30/16 [History Last Taken 3 Days Ago ~07/05/20] fluticasone 100 mcg-salmeterol 50 mcg/dose blistr powdr for inhalation (Advair Diskus) 1 puff inhalation DAILY 06/30/16 [History Last Taken 07/08/20] ospemifene 60 mg tablet (Osphena) 60 mg PO DAILY 07/06/17 [History Last Taken 07/08/20] biotin 5,000 mcg disintegrating tablet 5,000 mcg PO DAILY 02/04/20 [History Last Taken 07/08/20] calcium carbonate 500 mg calcium (1,250 mg) tablet 1,000 mg PO BID 02/04/20 [History Last Taken 07/08/20] cholecalciferol (vitamin D3) 25 mcg (1,000 unit) tablet 25 mcg PO DAILY 02/04/20 [History Last Taken 07/08/20] zoledronic acid 5 mg/100 mL in mannitol 5 %-water intravenous piggybck 5 mg IV .YEARLY 02/04/20 [History Last Taken 8 Months Ago ~11/08/19] pantoprazole 40 mg tablet,delayed release 40 mg PO DAILY GERD 07/08/20 [History Last Taken 07/08/20] aspirin 81 mg chewable tablet 81 mg PO DAILY@0800 30 days 07/09/20 [Rx Last Taken 08/10/20] diltiazem HCl 60 mg capsule,extended release 12 hr 180 mg PO DAILY 04/20/22 [History Last Taken Unknown] azithromycin 250 mg tablet 250 mg PO DAILY #4 TABLETS 10/18/22 [Rx Last Taken Unknown] prednisone 20 mg tablet 40 mg (2 x 20 mg) PO DAILY #8 TABLETS 10/18/22 [Rx Last Taken Unknown] Allergy/AdvReac Type Severity Reaction Status Date / Time No Known Allergies Allergy Verified 10/18/22 08:32 Family History Father Lung cancer Surgical History History of cholecystectomy History of left heart catheterization (08/10/20) History of tubal ligation Social History Smoking Status: Former smoker ROS ROS ED Constitutional Constitutional ED: Denies chills, fever(s) or sweats Eyes Eyes: Denies change in vision ENT ENT ED: Denies dysphagia or sore throat Cardiovascular Cardiovascular: Reports palpitations and racing heartbeat; Denies chest pain or leg edema Respiratory/Chest Respiratory/Chest: Reports cough; Denies dyspnea or dyspnea on exertion Gastrointestinal Gastrointestinal: Denies abdominal pain, diarrhea, nausea or vomiting Genitourinary Genitourinary ED: Denies dysuria, hematuria or urinary frequency Musculoskeletal Musculoskeletal: Denies back pain, extremity pain or neck pain Integumentary Denies rash or wounds Neurologic Neurologic: Denies headache(s), paresthesias or weakness EXAM Physical Exam Const Vital Signs: 10/18/22 08:31 Temperature 97.2 F L Temperature Source Temporal Pulse Rate 72 Respiratory Rate 14 Blood Pressure 134/82 H Blood Pressure Mean 99 Pulse Ox 99 Oxygen Delivery Method Room Air Positive well nourished and well developed General Appearance ED: well developed and NAD HEENT Reports moist mucous membranes normocephalic and atraumatic Eyes PERRL, EOMs intact bilaterally and conjunctivae normal General Eye ED: Yes normal appearance of both eyes Neck no lymphadenopathy and supple General: Negative for tenderness Chest Wall Chest: Negative for tenderness Resp normal respiratory effort and normal air movement Effort and Inspection: symmetric chest movement; Negative for respiratory distress Cardio regular rate, regular rhythm and no murmurs Peripheral Pulses: pulses 2+ throughout GI normal to inspection, nondistended, normoactive bowel sounds and non-tender Palpation: Negative for guarding or rebound tenderness present Back/Spine no CVA tenderness and no thoracic nor lumbar tenderness Extremity normal to inspection General Extremety ED: Negative for edema or tenderness General Extremity: Negative for edema Neuro oriented x3 and no sensory deficits noted Sensorium / Orientation: awake and alert Skin no rashes or lesions noted and no wounds MDM MDM MDM Narrative Medical decision making narrative: Interventions / MDM: Differential diagnosis: COPD exacerbation, pneumonia Diagnosis considered but do not suspect: Cardiac dysrhythmia however normal EKG My EKG interpretation: Sinus rhythm 64, no ST changes. T wave inversion anterior extreme lateral leads. Similar findings from January 2022. Imaging independently reviewed and interpreted by myself: 2 view chest x-ray no acute process External documents reviewed: N/A Test considered but not ordered:N/A ED course: EKG sinus rhythm chronic T wave inversions. No chest pains. Chest x-ray ordered basic labs ordered. Heart rate in the 70s. Re-evaluation: stable, chest x-ray negative for pneumonia and labs are stable slight renal insufficiency 1.1. Patient no respiratory distress. Heart remains sinus rhythm. History of paroxysmal A-fib. His underlying COPD history with coughing with sputum. Recommendations antibiotics with underlying COPD. She does report slight wheeze at home. Steroids also started. First dose in the ED 5-day course of Zithromax and prednisone. Return precautions. Otherwise outpatient follow-up. All questions were answered. Disposition discussed with patient/family/significant other: Patient Case discussed with consulting clinician: N/A This note was generated with [employer] dictation software. It may contain incorrect words, spelling, and punctuation that were not noted in checking the note before signing. Lab Data Attestation: I reviewed the patient's lab results. Labs: Laboratory Results - last 24 hr 10/18/22 08:42 WBC 11.8 H RBC 5.01 Hgb 14.8 Hct 44.1 MCV 88.0 MCH 29.5 MCHC 33.6 RDW Std Deviation 43.5 RDW Coeff of Dahlia 13.4 Plt Count 263 MPV 10.7 Immature Gran % (Auto) 0.400 Neut % (Auto) 69.8 Lymph % (Auto) 20.5 [place] % (Auto) 7.5 Eos % (Auto) 1.4 Baso % (Auto) 0.4 Absolute Neuts (auto) 8.2 H Absolute Lymphs (auto) 2.42 Nucleated RBC % 0 Sodium 140 Potassium 4.1 Chloride 106 Carbon Dioxide 28.0 Anion Gap 6 BUN 13 Creatinine 1.13 H Estim Creat Clear Calc 40.30 Est GFR (MDRD) Af Amer 62 Est GFR (MDRD) Non-Af 52 L BUN/Creatinine Ratio 11.5 Glucose 96 Calcium 9.4 Radiography Diagnostic Testing: Clinical Impression(s) from Imaging Studies Chest X-Ray 10/18/22 09:05 IMPRESSION: Hyperinflation. The lungs are clear. Electronically Signed: Gray Allen MD at 9:35 EDT , Discharge Plan Triage Chief Complaint: Palpitations ED Provider: Iain Barajas Dx/Rx/DC Orders Clinical Impression: Palpitations, COPD (chronic obstructive pulmonary disease), Bronchitis Instructions: ED COPD Flare, ED Palpitations Prescriptions: New azithromycin [azithromycin] 250 mg tablet 250 mg PO DAILY Qty: 4 0RF prednisone 20 mg tablet 40 mg PO DAILY Qty: 8 0RF No Action diltiazem HCl 60 mg capsule,extended release 12 hr 180 mg PO DAILY fluticasone propion-salmeterol [Advair Diskus] 1 EACH blister with device 1 puff inhalation DAILY Patient Comments: albuterol sulfate [ProAir HFA] 1 PUFF inhaler 1 puff inhalation Q6H PRN PRN (Reason: Sob &/Or Wheezing) Osphena 60 MG tablet 60 mg PO DAILY calcium carbonate 500 MG tablet 1,000 mg PO BID cholecalciferol (vitamin D3) 25 MCG tablet 25 mcg PO DAILY biotin 5,000 MCG tablet,disintegrating 5,000 mcg PO DAILY zoledronic acuj-kepobrlu-ewmqs 5 MG/100 ML piggyback 5 mg IV .YEARLY pantoprazole 40 mg tablet,delayed release (DR/EC) 40 mg PO DAILY Patient Comments: TAKE 1 TABLET BY MOUTH DAILY aspirin 81 mg Tablet,Chewable 81 mg PO DAILY@0800 30 Days 0RF Rx Instructions: taking 3 days a week Stand Alone Forms: ED Work / School Excuse Primary Care Provider: Jonh Thomas Referrals: Jonh Thomas MD [Primary Care Provider] - 1 Week Activity Restrictions/Additional Instructions: EKG sinus rhythm. Labs stable. Chest x-ray negative. However with COPD history recommendations is antibiotics and steroids. Next dose is tomorrow. Follow-up with your doctors. Return if worsening symptoms. Disposition Disposition: Home, Self Care
--- NOTE | 2022-10-18 09:05 | RAD_ITS ---
STUDY: X-RAY CHEST REASON FOR EXAM: Female, 61 years old. 3 week history of cough. TECHNIQUE: PA and lateral views of the chest. COMPARISON: Comparison is made with prior study dated January 11, 2022. FINDINGS: EKG electrodes are seen. There is hyperinflation of the lungs consistent with chronic obstructive lung disease (COPD). There is no demonstrated pleural abnormality. Normal size heart. Normal mediastinum and juan. Normal visualized pulmonary arteries. There is atherosclerotic calcification of the aortic arch with tortuosity. There are degenerative changes of the visualized thoracic spine. Normal visualized ribs, clavicles, and shoulders. There is no demonstrated abnormality of the visualized soft tissue structures of the upper abdomen. RAD/Chest PA and Lateral IMPRESSION: Hyperinflation. The lungs are clear. Electronically Signed: Gray Allen MD at 9:35 EDT ,
[2022-10-18 09:10] LABS: Absolute Lymphocyte Count 2.42 X10^3/uL (0.83-4.51); Absolute Neutrophil Count 8.2 X10^3/uL (2.0-7.7); Basophil# 0.05 X10^3/uL; Basophil% 0.4 % (0-1); Eosinophil# 0.17 X10^3/uL; Eosinophils% 1.4 % (0-5); Hematocrit 44.1 % (37-47); Hemoglobin 14.8 g/dL (12.0-15.0); Lymphocyte # 2.42 X10^3/ul (0.83-4.51); Lymphocyte % 20.5 % (19-41); Mean Corp Hgb Conc 33.6 g/dL (32-36); Mean Corpuscular Hgb 29.5 pg (27.0-32.0); Mean Platelet Vol. 10.7 fl (6.2-12.0); Monocyte# 0.89 X10^3/uL; Monocyte% 7.5 % (0-10); NRBC Flagged by Analyzer 0 % (0-5); Neutrophil # 8.22 X10^3/uL (2.7-7.7); Neutrophil % 69.8 % (47-70); Platelet Count 263 K/mm3 (150-450); RBC Distribution Width CV 13.4 % (11.6-14.6); RBC Distribution Width SD 43.5 fl (35.1-43.9); Red Blood Count 5.01 M/mm3 (4.2-5.4); White Blood Count 11.8 K/mm3 (4.4-11.0)
[2022-10-18 09:25] LABS: Anion Gap 6 (5-15); BUN 13 mg/dL (7-18); BUN/Creat Ratio 11.5 RATIO (10-20); Calcium,Total 9.4 mg/dL (8.5-10.1); Chloride 106 mmol/L (98-107); Creatinine, Serum 1.13 mg/dL (0.55-1.02); EST Glomerular Filtration Rate 52 mL/min (>60); Est Glom Filt Rate - Afr Amer 62 mL/min (>60); Glucose 96 mg/dL (74-106); Potassium 4.1 mmol/L (3.5-5.1); Sodium Level 140 mmol/L (136-145)
[2022-10-18] MEDS: predniSONE 20 MG Tablet 40 MG PO (09:59)
[2022-10-18] MEDS: Azithromycin 250 MG Tablet 500 MG PO (09:59)
[2022-10-18 10:05] VITALS: BP 129/74; PULSE 68; RESP 15; O2SAT 98
== END 2022-10-18 10:07 | disposition home or self-care (01) ==
PROVIDERS: Emergency Provider Emergency Medicine; PCP Family Medicine; Visit Provider Emergency Medicine
DX: R00.2 Palpitations (principal); J44.9 Chronic obstructive pulmonary disease, unspecified; I48.0 Paroxysmal atrial fibrillation; Z87.891 Personal history of nicotine dependence; Z79.82 Long term (current) use of aspirin; Z79.899 Other long term (current) drug therapy; Z79.52 Long term (current) use of systemic steroids; J40 Bronchitis, not specified as acute or chronic
CPT/HCPCS: 71046; 80048; 85025; 93005; 99285; A4216

== ENCOUNTER → 2022-12-07 | Outpatient (CLI) | payer BC, SELFPAY ==
[2022-12-07 13:00] VITALS: PULSE 59; PULSE 73; PULSE 74; PULSE 75; PULSE 76; PULSE 81; O2SAT 91; O2SAT 92; O2SAT 93; O2SAT 96; O2SAT 97
--- NOTE | 2022-12-08 07:00 | WT_ITS ---
PSN 6 Minute Walk Test 6 Minute Walk Test 6 Minute Walk Test: 6 Minute Walk Test PSN:6-Minute Walk Test Start: 12/07/22 13:02 Freq: Status: Active Protocol: RESP.6MINW Document 12/07/22 13:00 [facility] (Rec: 12/07/22 13:06 [facility] [id number]) 6 Minute Walk Test Date Performed 12/07/22 Time Performed 13:00 Height 5 ft 2 in Weight: 48.081 kg Weight in Pounds 106.[address]: Dr Tucker Assistive device used: None Pre-test Oxygen Delivery Method Room Air Pulse Ox 97 Pulse Rate (60-100) 59 L Dyspnea Anthony Scale (0-10) 0 Exertion Anthony Scale (6-20) 6 1st minute Oxygen Delivery Method Room Air Pulse Ox 91 Pulse Rate (60-100) 75 2nd minute Oxygen Delivery Method Room Air Pulse Ox 91 Pulse Rate (60-100) 74 3rd minute Oxygen Delivery Method Room Air Pulse Ox 91 Pulse Rate (60-100) 81 4th minute Oxygen Delivery Method Room Air Pulse Ox 93 Pulse Rate (60-100) 75 5th minute Oxygen Delivery Method Room Air Pulse Ox 91 Pulse Rate (60-100) 73 6th minute Oxygen Delivery Method Room Air Pulse Ox 92 Pulse Rate (60-100) 76 Dyspnea Anthony Scale (0-10) 0.5 Exertion Anthony Scale (6-20) 8 Post-test Oxygen Delivery Method Room Air Pulse Ox 96 Pulse Rate (60-100) 59 L Full Laps Walked 22 Partial Lap, Number of Tiles Walked 22 Total Distance Walked (ft) 1320 Interpretation Interpretation: The patient was able to ambulate 1320 feet over the course of 6 minutes on room air with no assistive devices or breaks. The patient did experience significant desaturation from a baseline of 97% to as low as 91% during testing. No significant tachycardia was noted. These findings are consistent with a respiratory limitation exercise tolerance. Recommendations Recommendations: No supplemental oxygen is indicated at this time. However, patient will need to be followed closely given level of desaturation
== END | disposition home or self-care (01) ==
LOC: PSN 12:45
PROVIDERS: PCP Family Medicine; Referring Provider Internal Medicine Critical Care Medicine; Visit Provider Internal Medicine Critical Care Medicine
DX: R06.00 Dyspnea, unspecified (principal); J44.9 Chronic obstructive pulmonary disease, unspecified
CPT/HCPCS: 94618

== ENCOUNTER → 2022-12-14 | Outpatient (CLI) | payer BC, SELFPAY ==
--- NOTE | 2022-12-14 13:57 | ECHOD_ITS ---
Reason For Study: Dyspnea/SOB Procedure This was a 2D Doppler, Color Flow transthoracic echocardiogram. The study was technically difficult. Exam performed in department. Left Ventricle Normal LV size. Left ventricular systolic function is normal. The estimated ejection fraction is 60 %. No regional wall motion abnormalities noted. Right Ventricle Normal RV size. Normal systolic function. Atria Normal left atrium. Normal right atrium. Mitral Valve Normal mitral valve. Tricuspid Valve Normal tricuspid valve. Mild (1+) tricuspid valve insufficiency. Pulmonary artery systolic pressure is 38 mmHg. Aortic Valve Normal aortic valve. Trisinus/trileaflet aortic valve. Pulmonic Valve Normal pulmonic valve. Great Vessels Normal aortic root. The pulmonary artery is normal size. Inferior vena cava collapse with respiration. Pericardium/Pleural No pericardial effusion. MMode/2D Measurements & Calculations LVIDd: 4.1 cm IVSd: 0.78 cm LA dimension: 3.1 cm LVIDs: 2.6 cm LVPWd: 0.66 cm RVDd: 2.7 cm FS: 35.4 % LAV(MOD-bp): 35.0 ml LA A4 area: 12.2 cm2 RA A4 area: 10.2 cm2 LAV(MOD-bp) Indexed: 23.6 ml/m2 LAV(MOD-sp2): 42.8 ml LAV(MOD-sp4): 26.0 ml TAPSE: 1.4 cm Time Measurements MV dec time: 0.16 sec Doppler Measurements & Calculations MV E max imer: 89.2 cm/sec Lat Peak E' Imer: 12.4 cm/sec Med Peak E' Imer: 11.1 cm/sec MV A max imer: 70.1 cm/sec E/E' lat: 7.2 E/E' med: 8.0 MV E/A: 1.3 MV V2 max: 96.4 cm/sec MV P1/2t max imer: 96.4 cm/sec Ao V2 max: 119.9 cm/sec MV max P.7 mmHg MV P1/2t: 57.0 msec Ao max P.7 mmHg MV V2 mean: 40.2 cm/sec Ao V2 mean: 79.2 cm/sec MV mean P.87 mmHg MV dec slope: 495.3 cm/sec2 Ao mean P.9 mmHg MV V2 VTI: 35.4 cm MVA(P1/2t): 3.9 cm2 Ao V2 VTI: 30.4 cm AV (velocity ratio): 0.95 LV V1 max: 123.0 cm/sec PA V2 max: 76.9 cm/sec TR max imer: 288.8 cm/sec LV V1 max P.1 mmHg TR max P.4 mmHg LV V1 mean P.8 mmHg LV V1 mean: 77.1 cm/sec LV V1 VTI: 28.8 cm ECHO/Echo Complete Interpretation Summary Normal LV size. Left ventricular systolic function is normal. The estimated ejection fraction is 60 %. Mild (1+) tricuspid valve insufficiency. Pulmonary artery systolic pressure is 38 mmHg. Ordering Physician: Julian Tucker Referring Physician: Julian Tucker Performed By: Alex Manzanares RCS
== END | disposition home or self-care (01) ==
LOC: CVS 13:56
PROVIDERS: PCP Family Medicine; Referring Provider Internal Medicine Critical Care Medicine; Visit Provider Internal Medicine Critical Care Medicine
DX: R06.02 Shortness of breath (principal)
CPT/HCPCS: 93306

== ENCOUNTER → 2023-06-11 | Outpatient (CLI) | payer BC, SELFPAY ==
[2023-06-11 15:34] LABS: Absolute Lymphocyte Count 2.22 X10^3/uL (0.83-4.51); Absolute Neutrophil Count 4.7 X10^3/uL (2.0-7.7); Basophil# 0.06 X10^3/uL; Basophil% 0.8 % (0-1); Eosinophil# 0.27 X10^3/uL; Eosinophils% 3.5 % (0-5); Hematocrit 40.3 % (37-47); Hemoglobin 12.9 g/dL (12.0-15.0); Lymphocyte # 2.22 X10^3/ul (0.83-4.51); Lymphocyte % 28.5 % (19-41); Mean Corpuscular Hgb 28.9 pg (27.0-32.0); Mean Corpuscular Volume 90.2 fL (81-99); Mean Platelet Vol. 10.8 fl (6.2-12.0); Monocyte# 0.49 X10^3/uL; Monocyte% 6.3 % (0-10); NRBC Flagged by Analyzer 0 % (0-5); Neutrophil # 4.71 X10^3/uL (2.7-7.7); Neutrophil % 60.5 % (47-70); Platelet Count 284 K/mm3 (150-450); RBC Distribution Width CV 13.7 % (11.6-14.6); RBC Distribution Width SD 45.1 fl (35.1-43.9); Red Blood Count 4.47 M/mm3 (4.2-5.4); White Blood Count 7.8 K/mm3 (4.4-11.0)
[2023-06-11 16:04] LABS: ALB/GLOB Ratio 1.1 RATIO (0.9-2.4); AST(SGOT) 22 U/L (15-37); Alanine Aminotransfer ALT/SGPT 18 U/L (13-56); Albumin, Serum 3.6 g/dL (3.2-5.0); Alkaline Phosphatase 74 U/L (45-117); Anion Gap 4 (5-15); BUN 18 mg/dL (7-18); BUN/Creat Ratio 16.5 RATIO (10-20); Calcium,Total 8.8 mg/dL (8.5-10.1); Chloride 107 mmol/L (98-107); Creatinine, Serum 1.09 mg/dL (0.55-1.02); EST Glomerular Filtration Rate 54 mL/min (>60); Est Glom Filt Rate - Afr Amer 65 mL/min (>60); Globulin 3.3 g/dL (2.2-4.2); Glucose 103 mg/dL (74-106); Magnesium 2.1 mg/dL (1.6-2.6); Protein, Total 6.9 g/dL (6.4-8.2); Sodium Level 139 mmol/L (136-145); Thyroid Stim Hormone (TSH) 1.12 uIU/mL (0.358-3.74)
== END | disposition home or self-care (01) ==
LOC: MFPLAB 11:48
PROVIDERS: PCP Family Medicine; Visit Provider Family Medicine
DX: J44.9 Chronic obstructive pulmonary disease, unspecified (principal); I48.0 Paroxysmal atrial fibrillation
CPT/HCPCS: 36415; 80053; 83735; 84443; 85025

== ENCOUNTER → 2023-12-20 | Outpatient (CLI) | payer BC, SELFPAY ==
--- NOTE | 2023-12-20 14:01 | CT_ITS ---
EXAM: CT CHEST, LUNG CANCER SCREENING WITHOUT INTRAVENOUS CONTRAST CLINICAL INDICATION: smoker quit 2012 TECHNIQUE: Helically acquired images were obtained of the chest without intravenous contrast using low dose (LDCT) lung cancer screening protocol. This CT exam was performed using one or more of the following dose reduction techniques: automated exposure control, adjustment of the mA and/or kV according to patient size, and/or use of iterative reconstruction technique. COMPARISON: Chest radiograph 10/18/2022 FINDINGS: LUNGS AND PLEURAL SPACES: Extensive diffuse centrilobular pulmonary emphysema. No evidence of lung mass or nodule. No pleural effusion or thickening. No pneumothorax. HEART: Normal. No pericardial effusion. Normal heart size. No coronary artery calcification. MEDIASTINUM: Normal. No mediastinal or hilar adenopathy. Esophagus is unremarkable. No hiatal hernia. THYROID: Normal. No thyroid nodules or calcification. BONES/JOINTS: No suspicious lytic or blastic abnormality. VASCULATURE: No aortic aneurysm. LYMPH NODES: Normal. No enlarged lymph nodes. CT/Low Dose CT Lung Screening IMPRESSION: 1. Extensive pulmonary emphysema. 2. No evidence of a lung mass or nodule. Lung-RADS score: 1S - Negative. Additional clinically significant or potentially clinically significant findings are described. Recommend continued annual screening with a low-dose CT (LDCT) in 12 months. Electronically Signed: Osito Alexis MD at 15:26 EDT ,
== END | disposition home or self-care (01) ==
LOC: CT 13:57
PROVIDERS: PCP Family Medicine; Referring Provider Nurse Practitioner Acute Care; Visit Provider Nurse Practitioner Acute Care
DX: Z12.2 Encounter for screening for malignant neoplasm of respiratory organs (principal); F17.210 Nicotine dependence, cigarettes, uncomplicated
CPT/HCPCS: 71271

== ENCOUNTER → 2023-12-24 | Outpatient (CLI) | payer BC, SELFPAY ==
[2023-12-24 14:48] LABS: Absolute Lymphocyte Count 2.38 X10^3/uL (0.83-4.51); Basophil# 0.06 X10^3/uL; Basophil% 0.8 % (0-1); Eosinophil# 0.19 X10^3/uL; Eosinophils% 2.6 % (0-5); Hematocrit 40.8 % (37-47); Hemoglobin 12.5 g/dL (12.0-15.0); Lymphocyte # 2.38 X10^3/ul (0.83-4.51); Lymphocyte % 33.1 % (19-41); Mean Corp Hgb Conc 30.6 g/dL (32-36); Mean Corpuscular Volume 91.5 fL (81-99); Monocyte# 0.56 X10^3/uL; Monocyte% 7.8 % (0-10); NRBC Flagged by Analyzer 0 % (0-5); Neutrophil # 3.97 X10^3/uL (2.7-7.7); Neutrophil % 55.3 % (47-70); Platelet Count 234 K/mm3 (150-450); RBC Distribution Width CV 13.4 % (11.6-14.6); RBC Distribution Width SD 45.6 fl (35.1-43.9); Red Blood Count 4.46 M/mm3 (4.2-5.4); White Blood Count 7.2 K/mm3 (4.4-11.0)
[2023-12-24 15:12] LABS: Anion Gap 3 (5-15); BUN 15 mg/dL (7-18); BUN/Creat Ratio 13.9 RATIO (10-20); Chloride 107 mmol/L (98-107); Creatinine, Serum 1.08 mg/dL (0.55-1.02); EST Glomerular Filtration Rate 54 mL/min (>60); Est Glom Filt Rate - Afr Amer 66 mL/min (>60); Glucose 103 mg/dL (74-106); Potassium 4.1 mmol/L (3.5-5.1); Sodium Level 138 mmol/L (136-145)
[2024-01-04 12:09] LABS: PTHIN 41 pg/mL (15-65)
== END | disposition home or self-care (01) ==
LOC: LAB 14:09
PROVIDERS: PCP Family Medicine; Referring Provider Family Medicine; Visit Provider Family Medicine
DX: J44.9 Chronic obstructive pulmonary disease, unspecified (principal); R79.89 Other specified abnormal findings of blood chemistry
CPT/HCPCS: 36415; 80048; 82306; 83970; 85025

== ENCOUNTER → 2024-06-12 | Outpatient (CLI) | payer BC, SELFPAY ==
[2024-06-12 18:02] LABS: Absolute Lymphocyte Count 2.62 X10^3/uL (0.83-4.51); Absolute Neutrophil Count 4.5 X10^3/uL (2.0-7.7); Basophil# 0.09 X10^3/uL; Basophil% 1.1 % (0-1); Eosinophil# 0.22 X10^3/uL; Eosinophils% 2.7 % (0-5); Hematocrit 40.1 % (37-47); Hemoglobin 12.9 g/dL (12.0-15.0); Lymphocyte # 2.62 X10^3/ul (0.83-4.51); Lymphocyte % 32.5 % (19-41); Mean Corp Hgb Conc 32.2 g/dL (32-36); Mean Corpuscular Hgb 28.4 pg (27.0-32.0); Mean Corpuscular Volume 88.3 fL (81-99); Mean Platelet Vol. 10.9 fl (6.2-12.0); Monocyte% 7.5 % (0-10); NRBC Flagged by Analyzer 0 % (0-5); Neutrophil # 4.49 X10^3/uL (2.7-7.7); Neutrophil % 55.8 % (47-70); Platelet Count 284 K/mm3 (150-450); RBC Distribution Width CV 13.7 % (11.6-14.6); RBC Distribution Width SD 44.4 fl (35.1-43.9); Red Blood Count 4.54 M/mm3 (4.2-5.4); White Blood Count 8.1 K/mm3 (4.4-11.0)
[2024-06-12 18:53] LABS: ALB/GLOB Ratio 1.5 RATIO (0.9-2.4); AST(SGOT) 24 U/L (<=31); Alanine Aminotransfer ALT/SGPT 13 U/L (<=34); Albumin, Serum 4.1 g/dL (3.4-4.8); Alkaline Phosphatase 75 U/L (35-104); Anion Gap 11 (5-15); BUN 15 mg/dL (4-19); Calcium,Total 9.5 mg/dL (7.6-11.0); Carbon Dioxide 24.1 mmol/L (21.0-32.0); Chloride 103 mmol/L (98-108); Creatinine, Serum 1.04 mg/dL (0.70-1.20); EST Glomerular Filtration Rate 60 (>60); Globulin 2.7 g/dL (2.2-4.2); Glucose 85 mg/dL (70-99); Potassium 4.4 mmol/L (3.3-5.1); Protein, Total 6.8 g/dL (5.9-8.4); Sodium Level 139 mmol/L (133-145); Total Bilirubin 0.34 mg/dL (0.00-1.30); Vitamin D,25 Hydroxy 39.5 ng/mL (30-100)
== END | disposition home or self-care (01) ==
LOC: MFPLAB 14:03
PROVIDERS: PCP Family Medicine; Referring Provider Family Medicine; Visit Provider Family Medicine
DX: M81.0 Age-related osteoporosis without current pathological fracture (principal); J44.9 Chronic obstructive pulmonary disease, unspecified
CPT/HCPCS: 36415; 80053; 82306; 85025

== ENCOUNTER 2025-01-16 12:36 | Outpatient (CLI) | payer BC, SELFPAY ==
--- NOTE | 2025-01-16 12:40 | CT_ITS ---
PROCEDURE: LOW DOSE CT LUNG SCREENING 01/16/2025 REASON FOR EXAM: SMOKER QUIT 2012 1 pack per day smoker times 30 years TECHNIQUE: Procedure Code: [id number] Modality: CT Procedure: LOW DOSE CT LUNG SCREENING Coronal and Sagittal reconstruction series were provided. One or more dose reduction techniques were used (e.g., Automated exposure control, adjustment of the mA and/or kV according to patient size, use of iterative reconstruction technique). REFERENCE LINK: [facility] Lung-RADS RADIATION DOSE SUMMARY: CTDlvol: 2.01 mGy DLP: 67.20 mGycm COMPARISON: 2023 FINDINGS: PULMONARY NODULES: (Only nodules >3mm are reported) Lung windows show underlying emphysema with chronic interstitial changes in both lung downs. No organized infiltrate, or effusion. There is a stable subpleural 1 cm nodule in the medial aspect of the right lower lobe on axial image 107. No new suspicious noncalcified mass or nodule. Limited soft tissue windows show a normal-appearing thyroid gland. No suspicious axillary, mediastinal or perihilar adenopathy. The thoracic aorta tapers normally. There are punctate coronary artery calcifications. Limited cuts of the upper abdomen do not show a suspicious abnormality. Bony structures show degenerative change CT/Low Dose CT Lung Screening IMPRESSION: Underlying emphysema without a superimposed process, stable well-defined 1 cm s ubpleural nodule in the medial aspect of the right lower lobe Coronary artery calcification (CAC) is is present Lung-RADS Category: 2 BENIGN (BASED ON IMAGING FEATURES OR INDOLENT BEHAVIOR). RECOMMEND 12-MONTH SCREENING LDCT. Other Significant Findings: Reading Location: [id number]
== END 2025-01-16 23:59 | disposition home or self-care (01) ==
LOC: CT 12:37
PROVIDERS: PCP Registered Nurse; Referring Provider Nurse Practitioner Acute Care; Visit Provider Nurse Practitioner Acute Care
DX: Z12.2 Encounter for screening for malignant neoplasm of respiratory organs (principal); F17.210 Nicotine dependence, cigarettes, uncomplicated
CPT/HCPCS: 71271